=== PATIENT | female | born 1970 | race Caucasian/White ===

== ENCOUNTER 2023-04-24 13:02 | Emergency (ER) | payer OTHER, SELFPAY ==
[2023-04-24 13:04] VITALS: BP 138/84
[2023-04-24 13:28] LABS: % Basophils 1.5 % (0-2); % Eosinophils 1.6 % (0-6); % Immature Granulocytes 0.2 % (0-0.5); % Lymphocytes 44.7 % (20.5-51.1); % Monocytes 8.8 % (1.7-9.3); % Neutrophils 43.2 % (42.2-75.2); Absolute Basophils 0.1 10^3/uL (0-0.2); Absolute Eosinophils 0.1 10^3/uL (0-0.7); Absolute Lymphocytes 2.5 10^3/uL (1.2-3.4); Absolute Monocytes 0.5 10^3/uL (0.1-0.6); Absolute Neutrophils 2.4 10^3/uL (1.4-6.5); Hematocrit 38.3 % (37.0-47.0); Hemoglobin 13.3 g/dL (12.0-16.0); Mean Corp Hgb Conc. 34.7 g/dL (33.0-37.0); Mean Corpuscular Hgb 32.8 pg (27.0-31.0); Mean Corpuscular Volume 94.3 fL (81.0-99.0); Mean Platelet Volume 9.5 fL (7.4-10.4); Nucleated Red Blood Cells % 0 %; Platelet Count 305 10^3/uL (130-400); Red Blood Cell Count 4.06 10^6/uL (4.20-5.40); White Blood Cell Count 5.5 10^3/uL (4.8-10.8)
[2023-04-24 13:40] LABS: ALT (SGPT) 21 U/L (0-35); AST (SGOT) 32 U/L (14-36); Albumin 4.5 g/dl (3.5-5.0); Alkaline Phosphatase 50 U/L (38-126); Blood Urea Nitrogen 11 mg/dl (7-17); Calcium 9.3 mg/dl (8.4-10.2); Carbon Dioxide 31 mmol/L (22-30); Chloride 104 mmol/L (98-107); Glucose 88 mg/dl (70-99); Potassium 4.5 mmol/L (3.5-5.1); Sodium 137 mmol/L (135-145); Total Bilirubin 0.6 mg/dl (0.2-1.3); Total Protein 7.1 g/dl (6.3-8.2); eGFR > 60.00
[2023-04-24 13:49] LABS: Troponin I 0.024 ng/ml
[2023-04-24 14:05] VITALS: BP 131/80
[2023-04-24 14:52] VITALS: BP 139/87
[2023-04-24 15:00] VITALS: BP 121/65
--- NOTE | 2023-04-24 15:04 | ED.GENMED ---
History of Present Illness
General
Chief Complaint: Chest Pain
Source: patient
Exam Limitations: none
Time Seen by Provider: 04/24/23 14:12
Nursing documentation reviewed up to this point in time: agreed with
Travel History
Have you had any contact with someone who has COVID-19?: No
Do you have any symptoms of coronavirus? Fever > 100 degrees, chills, cough, shortness of breath, sore throat, loss of taste or smell, muscle aches, or headache?: No
History of Present Illness
History of Present Illness:
52-year-old female with past medical history of asthma GERD hypertension anxiety presenting to the emergency department today with concerns of chest pressure intermittently over the past 2 days with associated sweatiness when this occurs. Last
event was just prior to arrival to the emergency department. Currently now pain-free. Denies any exertional component denies any associated vomiting or nausea. Denies any recent trauma surgery immobilization history of blood clots estrogen
product usage.
Past History
Past History
ED Past Medical History: Asthma, Psychiatric (Chronic alcoholic) and Other (fibromyalgia)
ED Past Surgical History:
Patient has exhibited threatening behavior?: No
PSI?: No
Social History
Tobacco: Non-smoker
Alcohol: Chronic alcoholic
Drug: None
Personal:
Living: with family
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
Family History
Family History: Other (mother- afib); Negative Early CAD or CAD
Review of Systems
Review of Systems
Allergies reviewed?: Yes
All Other Systems: ROS reviewed and negative except as documented in HPI and ROS
Phy Exam
Physical Exam
Physical Exam:
GENERAL: Alert , in no apparent distress
EYE: pupils equal and reactive
NECK: Supple, no significant adenopathy.
ENT: o/p clr, mmm.
CARDIAC: Regular rate and rhythm .
LUNGS: Clear breath sounds bilaterally, no acute respiratory distress, no wheezes/rales/rhonchi
ABDOMEN: Soft, without focal tenderness, no r/g, no cvat
NEUROLOGICAL: Alert and oriented, no focal neuro deficits
SKIN: Warm and dry, skin intact.
MUSCULOSKELETAL: No edema, well perfused.
PSYCH: Normal and appropriate interaction.
Scores
Heart Score for Chest Pain Patients
STEMI patient?: No
History: Slightly or Non-Suspicious
ECG: Normal
Age: >45 - <65 years
Risk Factors: 1 or 2 Risk Factors
Troponin: </= Normal Limit
Heart Score for Chest Pain Patients: 2
Heart Score Risk: 2.5% MACE over next 6 weeks
Course
Orders/Labs/Results
Orders:
Orders
04/24/23 13:10
Complete Blood Count/With Diff Urgent
Comprehensive Metabolic Panel Urgent
Troponin I Urgent
04/24/23 13:11
Electrocardiogram (*1) Urgent
Reason for Study: Chest Pain
EKG- Treatment ONCE
04/24/23 14:12
Chest [CR Chest - 2 Views ] Urgent
Comment:
Reason For Exam: cp
04/24/23 15:33
EKG [Electrocardiogram (*1)] Urgent
Reason for Study: Chest Pain
04/24/23 15:34
EKG- Treatment ONCE
04/24/23 15:57
Troponin I Urgent
Abnormal Lab Results
04/24/23
13:10
RBC 4.06 L 10^6/uL
(4.20-5.40)
MCH 32.8 H pg
(27.0-31.0)
Carbon Dioxide 31 H mmol/L
(22-30)
04/24/23 13:10
04/24/23 13:10
Vital Signs
Initial and Last Documented VS:
Initial Vital Signs
Temp Pulse Resp BP Pulse Ox
97.8 F 71 16 138/84 98
04/24/23 13:04 04/24/23 13:04 04/24/23 13:04 04/24/23 13:04 04/24/23 13:04
Last Documented Vital Signs
Temp Pulse Resp BP Pulse Ox
97.8 F 54 11 121/65 100
04/24/23 13:04 04/24/23 16:30 04/24/23 16:30 04/24/23 15:00 04/24/23 13:56
MDM/Problems Addressed
MDM/Problems Addressed:
52-year-old female presenting to the emergency department today with concerns of chest pain described as a tightness rating to the left shoulder intermittently over the past 2 days last episode prior to arrival. Had some sweatiness during the
episode denies vomiting or shortness of breath no exertional component. No history of heart disease specifically. Does have high blood pressure baseline. On arrival vital signs are normal patient well-appearing no acute distress not tachycardic
normal pulse ox no risk factors for PE. Labs here are unremarkable initial troponin negative EKG nonischemic no signs of arrhythmia. Normal heart and lung examination.
Patient appears to be low risk for ACS, PE or life-threatening etiology at this time. Second troponin ordered to fully rule out ACS at this time.
Second troponin negative patient well-appearing throughout ER stay stable for outpatient management follow-up closely with cardiology. Return precautions given.
*Critical Care Note
Total Time (30-74mins, 75-104mins- exclusive of procedures): Not Applicable
ED Attending Note
-
Portions of this chart may have been created with voice recognition software.� Occasional wrong word or��sound alike� substitutions may have occurred due to the inherent limitations of voice recognition software.
Discharge Plan
Departure
Patient Disposition: Home (Routine Discharge)
Date of Disposition: 04/24/23
Time of Disposition: 17:04
Patient with high blood pressure during this ER visit?: No
Condition: Good
Covid-19: Not Applicable
Discharge Problem:
Chest pain
Instructions: Chest Pain DCA Follow Up
Prescriptions:
No Action
albuterol sulfate 2.5 MG/3 ML solution for nebulization
2.5 mg inhalation R TIDPRN PRN (Reason: sob)
metoprolol succinate 50 MG tablet extended release 24 hr
50 mg PO DAILY
albuterol sulfate 108 HFA aerosol inhaler
2 puff inhalation R Q4HPRN PRN (Reason: sob)
ondansetron 4 MG tablet,disintegrating
4 mg PO TIDPRN PRN (Reason: nausea ) Qty: 12 0RF
lorazepam 1 MG tablet
1 mg PO TIDPRN PRN (Reason: withdrawal sxs)
Patient Comments:
[facility] correctional supply supervisor on 03/01/2020 #15 , patient took half a tablet at 0330 and 0600 this morning 10/02/20
thiamine HCl (vitamin B1) 100 MG tablet
100 mg PO DAILY
Patient Comments:
today 10/02/20 id patient first day back on b1
ibuprofen 200 MG tablet
200 mg PO Q4HPRN PRN (Reason: mild pain)
clindamycin HCl 150 MG capsule
150 mg PO Q6 4 Days Qty: 16 0RF
fluconazole [Diflucan] 150 mg tablet
150 mg PO ONCE Qty: 1 0RF
Referrals:
Aaliyah Metcalf NP [Family Provider] -
Activity Restrictions/Additional Instructions:
You came to the emergency department today with concerns of chest discomfort. Here you had a reassuring evaluation with 2 negative troponin levels normal chest x-ray normal EKG and normal labs. Please follow closely with cardiology. Return to the
emergency department for any worsening, new or concerning symptoms.
Interventions
Interventions:
*Risk Screen - Suicide Last Done: 04/24/23 17:14
*General Assessment Last Done: 04/24/23 17:14
*Neglect/Abuse Screening Last Done: 04/24/23 17:14
ED- Fall Risk Assessment Last Done: 04/24/23 13:56
*ED COVID-19 Vaccine History Last Done: 04/24/23 13:04
*Nursing Disposition Last Done: 04/24/23 17:14
ED- Cardiac Assessment Last Done: 04/24/23 13:56
Discharge Date and Time
Discharge Date/Time: 04/24/23 17:17
[2023-04-24 16:35] LABS: Troponin I < 0.012 ng/ml
== END 2023-04-24 17:17 | disposition home or self-care (01) ==
LOC: EMR 13:02
PROVIDERS: Emergency Medicine; Physician Assistant; EMERGENCY PHYSICIAN Emergency Medicine; FAMILY PHYSICIAN Nurse Practitioner Family
DX: R07.89 Other chest pain (principal); J45.909 Unspecified asthma, uncomplicated; K21.9 Gastro-esophageal reflux disease without esophagitis; I10 Essential (primary) hypertension; F41.9 Anxiety disorder, unspecified; M79.7 Fibromyalgia; F10.20 Alcohol dependence, uncomplicated; Z88.0 Allergy status to penicillin; Z88.2 Allergy status to sulfonamides; Z88.8 Allergy status to other drugs, medicaments and biological substances; Z88.1 Allergy status to other antibiotic agents; Z88.3 Allergy status to other anti-infective agents; Z91.041 Radiographic dye allergy status; Z91.040 Latex allergy status
CPT/HCPCS: 99283; 71046; 80053; 84484; 85025; 93005

== ENCOUNTER 2023-08-16 13:41 | Emergency (ER) | payer OTHER, SELFPAY ==
[2023-08-16 13:49] VITALS: BP 150/97
--- NOTE | 2023-08-16 14:35 | ED.GENMED ---
History of Present Illness
General
Chief Complaint: Chest Pain
Source: patient
Exam Limitations: none
Time Seen by Provider: 08/16/23 14:10
Travel History
Have you had any contact with someone who has COVID-19?: No
Do you have any symptoms of coronavirus? Fever > 100 degrees, chills, cough, shortness of breath, sore throat, loss of taste or smell, muscle aches, or headache?: No
History of Present Illness
History of Present Illness:
53-year-old female presents complaining of multiple issues. Most prominent is left flank pain with associated nausea. Preceding this point pain she developed blurry vision and has been having sweats. She notes associated chest pain as well. She
states she is under significant amount of stress. She has a history of IBS-C. She follows with cardiology and GI. She notes that her urine was darker in color and foul in odor. She denies measurable fever. No other complaints at this time
Past History
Past History
ED Past Medical History: Asthma, Psychiatric (Chronic alcoholic) and Other (fibromyalgia)
ED Past Surgical History:
Patient has exhibited threatening behavior?: No
PSI?: No
Social History
Tobacco: Non-smoker
Alcohol: Chronic alcoholic
Drug: None
Personal:
Living: with family
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
Family History
Family History: Other (mother- afib); Negative Early CAD or CAD
Phy Exam
Physical Exam
Physical Exam:
General: Well-appearing female no acute respiratory distress
HEENT: Normocephalic atraumatic heart: Regular rate and rhythm no murmurs
Lungs: Clear no wheeze or rales
Abdomen soft tender to the left costovertebral angle and slightly to the left mid abdomen. No guarding rebound normal bowel sounds nondistended
Extremities: No cyanosis
Skin: Warm no rash
Scores
Heart Score for Chest Pain Patients
STEMI patient?: No
History: Slightly or Non-Suspicious
ECG: Normal
Age: >45 - <65 years
Risk Factors: No Risk Factors
Troponin: </= Normal Limit
Heart Score for Chest Pain Patients: 1
Heart Score Risk: 2.5% MACE over next 6 weeks
Course
Orders/Labs/Results
Orders:
Orders
08/16/23 13:42
ECG [Electrocardiogram (*1)] Urgent
Reason for Study: Chest Pain
EKG- Treatment ONCE
08/16/23 14:30
CT Abd/pel Without Iv Or Oral Urgent
Comment:
Reason For Exam: left flank pain
0.9% Sodium Chloride 1000 ml [Nss] 1,000 ml IV BOLUS
08/16/23 14:44
Basic Metabolic Panel Urgent
Lipase Urgent
Troponin I Urgent
08/16/23 14:45
Complete Blood Count/With Diff Urgent
08/16/23 16:16
Urinalysis Reflex To Culture Urgent
Date Specimen was Collected: 08/16/23
Time Specimen was Collected: 15:00
08/16/23 17:22
Troponin I Urgent
08/16/23 17:48
ECG [Electrocardiogram (*1)] Urgent
Reason for Study: Chest Pain
Other Reason for Exam: serial trop
EKG- Treatment ONCE
Abnormal Lab Results
08/16/23 08/16/23
14:44 14:45
MCH 32.2 H pg
(27.0-31.0)
Absolute Lymphs (auto) 1.1 L 10^3/uL
(1.2-3.4)
Lymphocytes % 19.8 L %
(20.5-51.1)
Sodium 132 L mmol/L
(135-145)
Chloride 97 L mmol/L
(98-107)
Creatinine 0.5 L mg/dL
(0.6-1.0)
08/16/23 14:45
08/16/23 14:44
Vital Signs
Initial and Last Documented VS:
Initial Vital Signs
Temp Pulse Resp BP Pulse Ox
98.9 F 63 18 150/97 100
08/16/23 13:49 08/16/23 13:49 08/16/23 13:49 08/16/23 13:49 08/16/23 13:49
Last Documented Vital Signs
Temp Pulse Resp BP Pulse Ox
98.9 F 56 16 140/86 100
08/16/23 13:49 08/16/23 16:15 08/16/23 16:15 08/16/23 16:15 08/16/23 16:15
MDM/Problems Addressed
Differential Diagnosis Includes:
Patient with multiple complaints. Left flank. Consider renal colic versus pyelonephritis. Chest pain consider ACS versus reflux. Pain is not pleuritic do not suspect PE. Urine pending labs pending CT pending EKG through triage shows sinus
rhythm.
*Critical Care Note
Total Time (30-74mins, 75-104mins- exclusive of procedures): Not Applicable
Update Note
Update Note:
Initial troponin 0.027 and repeat troponin undetectable. CT abdomen shows no acute finding. Urinalysis negative. Labs reviewed without significant finding otherwise. Patient resting comfortably upon reassessment vital signs remained stable. No
indication for admission to hospital but will follow-up with street and building decorator chest pain hotline.
ED Attending Note
-
Portions of this chart may have been created with voice recognition software.� Occasional wrong word or��sound alike� substitutions may have occurred due to the inherent limitations of voice recognition software.
Discharge Plan
Departure
Patient Disposition: Home (Routine Discharge)
Date of Disposition: 08/16/23
Time of Disposition: 18:48
Patient with high blood pressure during this ER visit?: No
Discharge Problem:
Chest pain
Instructions: Chest Pain DCA Follow Up
Prescriptions:
No Action
albuterol sulfate 2.5 MG/3 ML solution for nebulization
2.5 mg inhalation R TIDPRN PRN (Reason: sob)
metoprolol succinate 50 MG tablet extended release 24 hr
50 mg PO DAILY
albuterol sulfate 108 HFA aerosol inhaler
2 puff inhalation R Q4HPRN PRN (Reason: sob)
ondansetron 4 MG tablet,disintegrating
4 mg PO TIDPRN PRN (Reason: nausea ) Qty: 12 0RF
lorazepam 1 MG tablet
1 mg PO TIDPRN PRN (Reason: withdrawal sxs)
Patient Comments:
[facility] pick up worker on 03/01/2020 #15 , patient took half a tablet at 0330 and 0600 this morning 10/02/20
thiamine HCl (vitamin B1) 100 MG tablet
100 mg PO DAILY
Patient Comments:
today 10/02/20 id patient first day back on b1
ibuprofen 200 MG tablet
200 mg PO Q4HPRN PRN (Reason: mild pain)
clindamycin HCl 150 MG capsule
150 mg PO Q6 4 Days Qty: 16 0RF
fluconazole [Diflucan] 150 mg tablet
150 mg PO ONCE Qty: 1 0RF
Referrals:
Aaliyah Metcalf NP [Family Provider] -
Activity Restrictions/Additional Instructions:
Please continue current medication. Please follow-up with your street and building decorator. Return if needed otherwise
Interventions
Interventions:
*General Assessment Last Done: 08/16/23 13:50
*ED COVID-19 Vaccine History Last Done: 08/16/23 13:50
ED- Cardiac Assessment Last Done: 08/16/23 14:45
Discharge Date and Time
Print Language: IRISH
[2023-08-16 14:42] VITALS: BMI 22.7
[2023-08-16 14:59] LABS: % Basophils 0.9 % (0-2); % Eosinophils 0.4 % (0-6); % Immature Granulocytes 0.4 % (0-0.5); % Lymphocytes 19.8 % (20.5-51.1); % Monocytes 8.7 % (1.7-9.3); % Neutrophils 69.8 % (42.2-75.2); Absolute Basophils 0.1 10^3/uL (0-0.2); Absolute Lymphocytes 1.1 10^3/uL (1.2-3.4); Absolute Monocytes 0.5 10^3/uL (0.1-0.6); Absolute Neutrophils 3.7 10^3/uL (1.4-6.5); Hematocrit 38.8 % (37.0-47.0); Hemoglobin 13.6 g/dL (12.0-16.0); Mean Corp Hgb Conc. 35.1 g/dL (33.0-37.0); Mean Corpuscular Hgb 32.2 pg (27.0-31.0); Mean Corpuscular Volume 91.9 fL (81.0-99.0); Nucleated Red Blood Cells % 0 %; Red Blood Cell Count 4.22 10^6/uL (4.20-5.40); Red Cell Dist. Width 12.6 % (11.5-14.5); White Blood Cell Count 5.3 10^3/uL (4.8-10.8)
[2023-08-16 15:19] LABS: Troponin I 0.027 ng/ml
[2023-08-16 15:28] LABS: Blood Urea Nitrogen 9 mg/dl (7-17); Calcium 9.7 mg/dl (8.4-10.2); Carbon Dioxide 27 mmol/L (22-30); Chloride 97 mmol/L (98-107); Estimated Creatinine Clearance 89 ml/min; Glucose 95 mg/dl (70-99); Lipase 136 U/L (23-300); Sodium 132 mmol/L (135-145); eGFR > 60.00
[2023-08-16] MEDS: NSS 1000 IV (16:13)
[2023-08-16 16:15] VITALS: BP 140/86
[2023-08-16 16:30] LABS: Urine Albumin Negative (Neg - Trace); Urine Bilirubin Negative (Negative); Urine Character Clear (Clear); Urine Color Straw; Urine Glucose Negative (Negative); Urine Ketone Negative (Negative); Urine Leukocyte Negative (Negative); Urine Nitrite Negative (Negative); Urine Occult Blood Negative (Negative); Urine Specific Gravity 1.005 (<1.030); Urine Urobilinogen Negative (Neg - 1+)
[2023-08-16 18:10] LABS: Troponin I < 0.012 ng/ml
== END 2023-08-16 19:21 | disposition home or self-care (01) ==
LOC: EMR 13:41
PROVIDERS: Physician Assistant; EMERGENCY PHYSICIAN Emergency Medicine; FAMILY PHYSICIAN Nurse Practitioner Family
DX: K58.9 Irritable bowel syndrome, unspecified (principal); R07.9 Chest pain, unspecified; R10.9 Unspecified abdominal pain; R11.0 Nausea; H53.8 Other visual disturbances; R61 Generalized hyperhidrosis; Z73.3 Stress, not elsewhere classified; J45.909 Unspecified asthma, uncomplicated; M79.7 Fibromyalgia; F10.20 Alcohol dependence, uncomplicated; Z88.5 Allergy status to narcotic agent; Z88.0 Allergy status to penicillin; Z88.2 Allergy status to sulfonamides; Z88.8 Allergy status to other drugs, medicaments and biological substances; Z88.1 Allergy status to other antibiotic agents; Z88.3 Allergy status to other anti-infective agents; Z91.041 Radiographic dye allergy status; Z91.040 Latex allergy status
CPT/HCPCS: 99284; 96360; 74176; 80048; 81003; 83690; 84484; 85025; 93005

== ENCOUNTER 2023-11-11 16:08 | Inpatient (IN) | payer OTHER, SELFPAY ==
[2023-11-11] VITALS (7 sets, daily range): BP systolic 96–158; BP diastolic 74–101; BMI 21.3
[2023-11-11] MEDS: NSS 1000 IV ×2 (13:47→18:13)
[2023-11-11 13:54] LABS: % Basophils 0.3 % (0-2); % Eosinophils 0.2 % (0-6); % Immature Granulocytes 0.2 % (0-0.5); % Lymphocytes 18.8 % (20.5-51.1); % Monocytes 5.3 % (1.7-9.3); % Neutrophils 75.2 % (42.2-75.2); Absolute Lymphocytes 1.2 10^3/uL (1.2-3.4); Absolute Monocytes 0.4 10^3/uL (0.1-0.6); Hematocrit 38.6 % (37.0-47.0); Hemoglobin 14.4 g/dL (12.0-16.0); Mean Corp Hgb Conc. 37.3 g/dL (33.0-37.0); Mean Corpuscular Hgb 32.4 pg (27.0-31.0); Mean Corpuscular Volume 86.7 fL (81.0-99.0); Mean Platelet Volume 9.3 fL (7.4-10.4); Nucleated Red Blood Cells % 0 %; Platelet Count 147 10^3/uL (130-400); Red Blood Cell Count 4.45 10^6/uL (4.20-5.40); Red Cell Dist. Width 11.4 % (11.5-14.5); White Blood Cell Count 6.6 10^3/uL (4.8-10.8)
[2023-11-11] MEDS: ZOFRAN 4 MG IV (14:09)
--- NOTE | 2023-11-11 14:10 | ED.GENMED ---
History of Present Illness
General
Chief Complaint: Cold/Flu/URI Symptoms
Source: patient
Time Seen by Provider: 11/11/23 13:24
History of Present Illness
History of Present Illness:
53-year-old female presenting to the emergency department for 2 separate concerns. Patient states she started with cold and flulike symptoms about 11 days ago, 2 days ago tested positive for COVID. She notes that her daughter who is at home also
had similar symptoms but recovered after 2 days. Patient endorses that over the last 48 hours she has had versus nausea, vomiting and difficulty tolerating p.o. She contacted her primary care doctor who prescribed her some Zofran but with her
continued symptoms today her PCP recommended she come to the ER for further evaluation. Patient has secondary concern of binge drinking at least 8-9 beers daily over the last 14 days. She has noted history for alcohol abuse and has gone inpatient
before stating that the last time she did was when her left her and she knew she needed to get help. Patient continues to go to outpatient meetings and has many people she can now lean on but states the last 2 weeks have been difficult and
more stressful for her. She denies any SI/HI/hallucinations. Patient notes her only other physical symptoms is persistent headache. Last drink of alcohol was earlier this morning.
Past History
Past History
ED Past Medical History: Asthma, GERD, Psychiatric (Chronic alcoholic) and Other (fibromyalgia)
ED Past Surgical History:
Patient has exhibited threatening behavior?: No
PSI?: No
Social History
Tobacco: Non-smoker
Alcohol: Chronic alcoholic
Drug: None
Personal:
Living: with family
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
Family History
Family History: Other (mother- afib); Negative Early CAD or CAD
Review of Systems
Review of Systems
All Other Systems: ROS reviewed and negative except as documented in HPI and ROS
Phy Exam
Physical Exam
Physical Exam:
GENERAL: Alert , in no apparent distress, Anxious
EYE: Clear conjunctiva
NECK: Supple
ENT: o/p clr, mmm.
CARDIAC: Regular rate and rhythm, no murmur.
LUNGS: Clear breath sounds bilaterally, no acute respiratory distress, no wheezes/rales/rhonchi
ABDOMEN: Soft, without focal tenderness, no r/g, no cvat
NEUROLOGICAL: Alert and oriented
SKIN: Warm and dry, skin intact.
MUSCULOSKELETAL: well perfused.
PSYCH: Normal and appropriate interaction.
Scores
Heart Failure Risk
Heart Failure Risk Score: Not Applicable
Heart Score for Chest Pain Patients
STEMI patient?: Not applicable
Withdrawal Assessment of Alcohol
Withdrawal Assessment Completed?: Yes
Nausea and Vomiting: Intermittent nausea with dry heaves (I am giving the score but this could also be related to patient's COVID illness)
Tactile Disturbances: None
Tremor: No tremor
Auditory Disturbances: Not present
Paroxysmal Sweats: No sweat visible
Visual Disturbances: Not present
Anxiety: Mild anxiety
Headache, Fullness in Head: Mild
Agitation: Normal activity
Orientation and clouding of sensorium: Oriented and can do serial additions
Total CIWA Score: 7
Alcohol Withdrawal Medication Recommendation: Equal to MSAS Score 0-4. Monitor & re-assess q2hrs, NO MEDICATION NEEDED
Course
Orders/Labs/Results
Orders:
Orders
11/11/23 13:25
0.9% Sodium Chloride 1000 ml [Nss] 1,000 ml IV BOLUS
11/11/23 13:40
Alcohol Urgent
Complete Blood Count/With Diff Urgent
Comprehensive Metabolic Panel Urgent
Magnesium Urgent
11/11/23 14:06
Ketorolac [Toradol] 30 mg IV NOW STA
Ondansetron Injectable [Zofran] 4 mg .ROUTE .[facility]
Ondansetron Injectable [Zofran] 4 mg IV NOW STA
11/11/23 14:07
Ketorolac [Toradol] 30 mg .ROUTE .[facility]
11/11/23 14:18
CR Chest - 2 Views Urgent
Comment:
Reason For Exam: covid, cough
11/11/23 14:58
Lorazepam [Ativan] 1 mg IV NOW STA
11/11/23 15:29
COVID-19 Antigen Urgent
Source: Nasal Swab
Serum Osmolality Urgent
11/11/23 15:37
Osmolality, Random Urine Urgent
Date Specimen was Collected: 11/11/23
Time Specimen was Collected: 15:36
11/11/23 15:49
Admit/Transfer Patient As Directed
Co-Sign Provider:
Level of Care: Inpatient admission
Assign to:: Telemetry
Physician / Group: Hospitalist
Diagnosis: Alcohol WD, covid pos.
Reason for Telemetry: Other
Other Reason for Telemetry: risk of seizures
Date to Stop Telemetry: 11/13/23
Time to Stop Telemetry: 11:00
Reason for Hospitalization: alcohol wd, covid pos, hyponatremia
Expected length of stay greater than two midnights?: Yes
ELOS- Estimated Length of Stay in days: 5
I certify the patient meets the requirements for IP care: Yes
11/11/23 15:52
Code Status As Directed
Resuscitation Status: Full Code
11/13/23 11:00
DC Protocol for Telemetry ONCE
Abnormal Lab Results
11/11/23 11/11/23 11/11/23
13:40 15:29 15:37
MCH 32.4 H pg
(27.0-31.0)
MCHC 37.3 H g/dL
(33.0-37.0)
RDW 11.4 L %
(11.5-14.5)
Lymphocytes % 18.8 L %
(20.5-51.1)
Sodium 122 L mmol/L
(135-145)
Chloride 90 L mmol/L
(98-107)
BUN 4 L mg/dl
(7-17)
Creatinine 0.5 L mg/dL
(0.6-1.0)
Serum Osmolality 267 L mOsm/kg
(275-300)
AST 65 H U/L
(14-36)
ALT 51 H U/L
(0-35)
Urine Osmolality 82 L mOsm/kg
(300-900)
11/11/23 13:40
11/11/23 13:40
Vital Signs
Initial and Last Documented VS:
Initial Vital Signs
Temp Pulse Resp BP Pulse Ox
98.3 F 81 16 96/74 98
11/11/23 12:58 11/11/23 12:58 11/11/23 12:58 11/11/23 12:58 11/11/23 12:58
Last Documented Vital Signs
Temp Pulse Resp BP Pulse Ox
98.3 F 81 16 96/74 98
11/11/23 12:58 11/11/23 12:58 11/11/23 12:58 11/11/23 12:58 11/11/23 12:58
MDM/Problems Addressed
Differential Diagnosis Includes:
Viral syndrome/COVID, dehydration, electrolyte disturbance, less concern for acute alcohol withdrawal given patient's last drink was less than 4 hours ago
MDM/Problems Addressed:
53-year-old female presenting to the emergency department to be evaluated at request of primary care provider for further evaluation of persistent COVID symptoms as well as alcohol use. Patient's main concern is difficulty tolerating p.o.
Certainly possible her nausea and vomiting is related to alcohol withdrawal however given that she has been drinking still during this time I favor this to be less likely. Will check labs, chest x-ray and treat with normal saline, Toradol and
Zofran. Reassessment following.
*Radiology
Radiology exam reviewed: preliminary read by ED provider (normal CXR)
*Pulse Oximetry
Patient hypoxic: no
*Critical Care Note
Total Time (30-74mins, 75-104mins- exclusive of procedures): Not Applicable
Patient Management
Discussion with other providers: Hospitalist
Escalation/DeEscalation of care consider admission/obs:
Patient's sodium 122. I suspect this is from volume depletion due to her nausea vomiting and lack of p.o. intake. She was treated with normal saline. Given multitude of concerns and presentation in the ED will admit for continued evaluation and
monitoring. Hospitalist team is aware and accepts.
ED Attending Note
-
Portions of this chart may have been created with voice recognition software.� Occasional wrong word or��sound alike� substitutions may have occurred due to the inherent limitations of voice recognition software.
Discharge Plan
Departure
Patient Disposition: Admit
Date of Disposition: 11/11/23
Time of Disposition: 14:49
Presentation/result/management discussed w/ accepting MD/DO: Hospitalist
Discharge Problem:
Acute hyponatremia, COVID, Alcohol abuse
Prescriptions:
No Action
albuterol sulfate 2.5 MG/3 ML solution for nebulization
2.5 mg inhalation R TIDPRN PRN (Reason: sob)
metoprolol succinate 50 MG tablet extended release 24 hr
50 mg PO DAILY
albuterol sulfate 108 HFA aerosol inhaler
2 puff inhalation R Q4HPRN PRN (Reason: sob)
ondansetron 4 MG tablet,disintegrating
4 mg PO TIDPRN PRN (Reason: nausea ) Qty: 12 0RF
lorazepam 1 MG tablet
1 mg PO TIDPRN PRN (Reason: withdrawal sxs)
Patient Comments:
[facility] package pick up on 03/01/2020 #15 , patient took half a tablet at 0330 and 0600 this morning 10/02/20
thiamine HCl (vitamin B1) 100 MG tablet
100 mg PO DAILY
Patient Comments:
today 10/02/20 id patient first day back on b1
ibuprofen 200 MG tablet
200 mg PO Q4HPRN PRN (Reason: mild pain)
clindamycin HCl 150 MG capsule
150 mg PO Q6 4 Days Qty: 16 0RF
fluconazole [Diflucan] 150 mg tablet
150 mg PO ONCE Qty: 1 0RF
Referrals:
Aaliyah Metcalf NP [Family Provider] -
Interventions
Interventions:
*Risk Screen - Suicide Last Done: 11/11/23 12:58
*General Assessment Last Done: 11/11/23 12:58
*Neglect/Abuse Screening Last Done: 11/11/23 12:58
Discharge Date and Time
Print Language: TELUGU
[2023-11-11] MEDS: TORADOL 30 MG IV (14:11)
[2023-11-11 14:33] LABS: ALT (SGPT) 51 U/L (0-35); AST (SGOT) 65 U/L (14-36); Albumin 4.9 g/dl (3.5-5.0); Alcohol 30 mg/dl; Alkaline Phosphatase 80 U/L (38-126); Blood Urea Nitrogen 4 mg/dl (7-17); Calcium 9.2 mg/dl (8.4-10.2); Carbon Dioxide 24 mmol/L (22-30); Chloride 90 mmol/L (98-107); Glucose 90 mg/dl (70-99); Magnesium 1.8 mg/dl (1.6-2.3); Potassium 4.8 mmol/L (3.5-5.1); Sodium 122 mmol/L (135-145); Total Protein 7.4 g/dl (6.3-8.2); eGFR > 60.00
--- NOTE | 2023-11-11 15:22 | HPS.HSE ---
Family Physician
-
Family Physician: Aaliyah Metcalf NP
Chief Complaint
-
nausea, anxiety.
History of Present Illness
53-year-old woman with the following concerns:
cold and flulike symptoms for about 11 days ago, and 2 days ago tested positive for COVID.
over the last 48 hours she has had nausea, vomiting and difficulty tolerating p.o.
binge drinking at least 8-9 beers daily over the last 14 days.
She has a history of alcohol abuse and has had inpatient admits before. She continues to go to outpatient meetings. She denies any SI/HI/hallucinations. Patient states that her only other physical symptoms is persistent headache. Last drink of
alcohol was earlier this morning. At the time of my admit she was very anxious. She was able to answer questions appropriately. In ED, her Na was 122.
Medical History
Past Medical History
Past Medical History: Reports Other
Additional Past Medical History:
Asthma
GERD
Chronic alcoholism
fibromyalgia
Renal mass
Past Surgical History: Reports Other
Additional Past Surgical History:
See above
Social History
Tobacco: Non-smoker
Alcohol: Chronic Alcoholic
Drug: None
Personal:
Living: With Family
Employment: Not Employed
Family History
Family History: Not pertinent
Allergies / Home Medications
Allergies reflects when Allergies were last updated in [employer].
Home Medications with original date entered in [employer]
Allergy/Medication List:
Allergies
Allergy/AdvReac Type Severity Reaction Status Date / Time
Androgenic Anabolic Steroid Allergy Intermediate Rash Verified 11/11/23 12:56
azithromycin Allergy Hives Verified 11/11/23 12:56
cephalexin Allergy Unknown Verified 11/11/23 12:56
Cephalosporins Allergy Unknown Verified 11/11/23 12:56
ciprofloxacin Allergy hives & sob Verified 11/11/23 12:56
doxycycline Allergy Throat Verified 11/11/23 12:56
closing
erythromycin base Allergy Pt Verified 11/11/23 12:56
tolerated
erythromycin.
Gadolinium-Containing Allergy Unknown Verified 11/11/23 12:56
Contrast Medi
[Gadolinium-Containing
Agents]
morphine [Morphine] Allergy Hives Verified 11/11/23 12:56
penicillin G Allergy Hives Verified 11/11/23 12:56
Penicillins Allergy Hives Verified 11/11/23 12:56
prednisone [Prednisone] Allergy Hives/itchi Verified 11/11/23 12:56
ng
Quinolones Allergy Unknown Verified 11/11/23 12:56
Sulfa (Sulfonamide Allergy Unknown Verified 11/11/23 12:56
Antibiotics)
sulfisoxazole Allergy Unknown Verified 11/11/23 12:56
latex [Latex] AdvReac Rash Verified 11/11/23 12:56
Home Medications
albuterol sulfate 2.5 mg/3 mL (0.083 %) solution for nebulization 2.5 mg inhalation R TIDPRN PRN sob 09/05/19
albuterol sulfate 90 mcg/actuation aerosol inhaler 2 puff inhalation R Q4HPRN PRN sob 09/05/19
metoprolol succinate 50 mg tablet,extended release 24 hr 50 mg PO DAILY Heart disease 09/05/19
ondansetron 4 mg disintegrating tablet 4 mg PO TIDPRN PRN nausea #12 tabs 01/15/20
ibuprofen 200 mg tablet 200 mg PO Q4HPRN PRN mild pain 10/02/20
lorazepam 1 mg tablet 1 mg PO TIDPRN PRN withdrawal sxs 10/02/20
thiamine HCl (vitamin B1) 100 mg tablet 100 mg PO DAILY Supplement 10/02/20
clindamycin HCl 150 mg capsule 150 mg PO Q6 4 days #16 caps 10/04/20
fluconazole 150 mg tablet (Diflucan) 150 mg PO ONCE #1 tab 07/17/22
Review of Systems
-
History Source: Patient
A 12 point ROS was completed and negative except as noted: Yes
Physical Exam
Vital Signs
Vital Signs
Temp Pulse Resp BP Pulse Ox
98.3 F 81 16 96/74 98
11/11/23 12:58 11/11/23 12:58 11/11/23 12:58 11/11/23 12:58 11/11/23 12:58
Physical Exam
General: Well Developed, Well Nourished and Appears in Distress
HEENT: No Ptosis, Nose Appears Normal and Ears Appear Normal
Respiratory: Clear
Cardiac: S1/S2 and Regular Rhythm
GI: Soft, Non Tender and Non Distended
Musculoskeletal: No Clubbing, No Cyanosis and No Edema
Skin: Warm and Dry; No Rash or Jaundice
Neuro: Awake, Alert and Oriented
Psych: Anxious
Laboratory Results
-
11/11/23 13:40
11/11/23 13:40
Laboratory Results
Total Bilirubin 1.0 mg/dl (0.2-1.3) 11/11/23 13:40
AST 65 U/L (14-36) H 11/11/23 13:40
ALT 51 U/L (0-35) H 11/11/23 13:40
Alkaline Phosphatase 80 U/L (38-126) 11/11/23 13:40
Data Reviewed
-
Lab Data: Labs Reviewed by me
Impression/Plan
-
IMPRESSION:
53 woman with probable alcohol wd and is covid positive (11 days of symptoms). Significant findings:
BP of 96/74
Na 122
BUN/Creat 4.0/0.5
AST/ALT 65/51
Covid (+) with 11 days of symptoms
PLAN:
1. Probable Etoh w/d, with nausea and poor po intake, and significant anxiety
CIWA protocol
IV saline
Zofran
2. Likely hypovolemic hyponatremia, given history of poor po intake and vomiting
IV saline
Recheck tonight and tomorrow AM
3. Low BP - likely from hypovolemia
IV saline
Consider midrodine if saline does not fix issue
4. AST/ALT elevated - chronic issue, likely from alcohol
Recheck in am
Check INR
5. H/o recent covid infection - CXR not yet reported, but no clinical signs of PNA
No antibiotics at this time
Outside of time window for covid specific meds
Follow daily
6. Anxiety - takes lorazepam as outpatient, but much worse now
Continue daily lorazepam
Take standing dose for the next 24 hours, then taper to PRN.
Full code
VCD for DVTp
[2023-11-11] MEDS: ATIVAN 1 MG IV (15:27)
[2023-11-11 15:48] LABS: Osmolality Serum 267 mOsm/kg (275-300)
[2023-11-11 15:50] LABS: Osmolality Urine 82 mOsm/kg (300-900)
[2023-11-11 16:08] LABS: COVID-19 Antigen Negative (Negative)
[2023-11-11] MEDS: FLUSH (NSS) 1 FLUSH IV (18:14)
[2023-11-11] MEDS: TORADOL 15 MG IV (21:28)
[2023-11-11] MEDS: XANAX 0.5 MG PO (22:19)
[2023-11-12 00:02] LABS: Blood Urea Nitrogen 10 mg/dl (7-17); Calcium 8.6 mg/dl (8.4-10.2); Carbon Dioxide 24 mmol/L (22-30); Chloride 99 mmol/L (98-107); Estimated Creatinine Clearance 89 ml/min; Glucose 137 mg/dl (70-99); Potassium 4.9 mmol/L (3.5-5.1); Sodium 128 mmol/L (135-145); eGFR > 60.00
[2023-11-12] MEDS: NSS 1000 IV (01:20)
[2023-11-12 03:31] VITALS: BP 128/79
[2023-11-12 06:35] LABS: Hematocrit 36.5 % (37.0-47.0); Hemoglobin 13.4 g/dL (12.0-16.0); Mean Corp Hgb Conc. 36.7 g/dL (33.0-37.0); Mean Corpuscular Hgb 32.2 pg (27.0-31.0); Mean Corpuscular Volume 87.7 fL (81.0-99.0); Mean Platelet Volume 9.7 fL (7.4-10.4); Platelet Count 145 10^3/uL (130-400); Red Blood Cell Count 4.16 10^6/uL (4.20-5.40); Red Cell Dist. Width 11.8 % (11.5-14.5); White Blood Cell Count 4.4 10^3/uL (4.8-10.8)
[2023-11-12] MEDS: TYLENOL 650 MG PO (06:41)
[2023-11-12] MEDS: ZOFRAN 4 MG IV (06:43)
[2023-11-12 06:57] LABS: ALT (SGPT) 45 U/L (0-35); AST (SGOT) 62 U/L (14-36); Albumin 3.8 g/dl (3.5-5.0); Alkaline Phosphatase 63 U/L (38-126); Blood Urea Nitrogen 8 mg/dl (7-17); Calcium 8.5 mg/dl (8.4-10.2); Carbon Dioxide 25 mmol/L (22-30); Chloride 104 mmol/L (98-107); Estimated Creatinine Clearance 89 ml/min; Glucose 91 mg/dl (70-99); Magnesium 2.1 mg/dl (1.6-2.3); Potassium 4.1 mmol/L (3.5-5.1); Sodium 132 mmol/L (135-145); Total Protein 6.2 g/dl (6.3-8.2); eGFR > 60.00
[2023-11-12 07:23] VITALS: BP 145/89
[2023-11-12] MEDS: FOLVITE 1 MG PO (08:46)
[2023-11-12] MEDS: TOPROL XL 50 MG PO (08:48)
[2023-11-12] MEDS: PROTONIX 40 MG PO (08:49)
[2023-11-12] MEDS: ZADITOR 2 DROP BOTH EYES ×2 (08:49→19:40)
[2023-11-12] MEDS: LINZESS PO (08:53)
[2023-11-12] MEDS: NSS IV (08:56)
[2023-11-12] MEDS: VENTOLIN NEBULES 2.5 MG INH ×2 (11:03→20:57)
[2023-11-12 11:08] VITALS: BP 116/74
[2023-11-12] MEDS: IMITREX 50 MG PO (12:46)
--- NOTE | 2023-11-12 13:17 | W.PN.HOSP.TC ---
Today's Communication/Plan
-
Continue supportive care
Imitrex for headache
CT head without contrast
Diet as tolerated
Assessment / Plan
Assessment / Plan
1. COVID-19 viral infection
-12 days from symptom initiation.
-All symptoms mainly upper respiratory tract in nature
-Chest x-ray clear
-Discussed possible Paxlovid therapy with variety of symptoms although patient wants to consider. have taken paxlovid in the past without any issues
2. Hypovolemic hyponatremia
-from poor oral intake
-admission Na of 122 ,improved to 132 post NS infusion
3. Headache
-Complaining of diffuse headache not subsiding with Tylenol/Toradol
-Patient had recent fall and although no head injury concerned about bleed, CT head w/o contrast ordered
-Imitrex ordered for patien to try
4. Nausea/vomiting
-Not completely resolved, Zofran does not help completely
-Will try different medication if continues to have problem
-Current able to tolerate diet
5. Alcohol use disorder
Generalized anxiety disorder
-Concerned about going through withdrawal although MSAS score 0-1
-PRN xanax ordered to use at night time
6. Essential HTN
-continue on toprol xl with holding parameter
7. LFT elevation
-COVID related, avoid hepatotoxic meds
-f/u LFT ordered
-Persistent nausea/vomiting will require upper quad ultrasound
DVT PPX -scd
Full code
Anticipated Discharge: Within 24 hours
Subjective/Interval History
-
Date of Service: November 12, 2023
have some headache/neck stiffness
no dyspnea/hypoxia
remains nauseous/poor apatite
Objective Data
-
Labs:
Laboratory Results
11/12/23
06:04
WBC 4.4 L
Hgb 13.4
Hct 36.5 L
Plt Count 145
Sodium 132 L
Potassium 4.1
Chloride 104
Carbon Dioxide 25
BUN 8
Creatinine 0.6
Glucose 91
Calcium 8.5
Total Bilirubin 1.0
AST 62 H
ALT 45 H
Alkaline Phosphatase 63
Vital Signs:
Vital Signs
Temp Pulse Resp BP Pulse Ox
97.8 F 70 16 116/74 100
11/12/23 11:08 11/12/23 11:08 11/12/23 11:08 11/12/23 11:08 11/12/23 11:08
I&O
11/11/23 11/12/23 11/13/23
06:59 06:59 06:59
Intake Total 480 / 480
Balance 480 / 480
Review of Systems
-
EENT: Reports Sore Throat and Runny Nose
Respiratory: Reports No Symptoms
Cardiac: Reports No Symptoms
Abdomen/GI: Reports Abdominal Pain and Nausea; Denies Vomiting
Neuro: Reports Headache and Weakness
Physical Exam
-
General: Negative Respiratory Distress or Appears in Distress
HEENT: Negative Oxygen
GI: Soft, Nontender and Nondistended
Musculoskeletal: No Edema
Neuro: Awake, Alert, Oriented and No Motor Deficits
[2023-11-12] MEDS: COMPAZINE 10 MG IV (13:51)
[2023-11-12] MEDS: FLUSH (NSS) 2 FLUSH IV (13:56)
--- NOTE | 2023-11-12 14:16 | PTCARENOTE ---
Pt states she did not like the way she feels on Imitrex. Shes states that her body feels heavy and her back and neck became stiff and tight after getting Imitrex. She has not gotten any pain relief from it as of yet. Pt given compazine 10mg Iv
for c/o a 'constant nauseous feeling that won't go away.' Will cont to monitor.
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
[2023-11-12 15:39] VITALS: BP 137/75
[2023-11-12 19:26] VITALS: BP 138/75
[2023-11-12] MEDS: PEPCID 20 MG PO (21:03)
[2023-11-12] MEDS: XANAX 0.5 MG PO (21:03)
[2023-11-12 23:21] VITALS: BP 106/76
[2023-11-13] MEDS: XANAX 0.5 MG PO ×2 (03:05→09:08)
[2023-11-13 03:41] VITALS: BP 135/75
[2023-11-13] MEDS: TYLENOL 650 MG PO (05:32)
[2023-11-13 06:35] LABS: Hematocrit 37.1 % (37.0-47.0); Hemoglobin 13.5 g/dL (12.0-16.0); Mean Corp Hgb Conc. 36.4 g/dL (33.0-37.0); Mean Corpuscular Volume 87.9 fL (81.0-99.0); Platelet Count 141 10^3/uL (130-400); Red Blood Cell Count 4.22 10^6/uL (4.20-5.40); Red Cell Dist. Width 11.9 % (11.5-14.5); White Blood Cell Count 4.6 10^3/uL (4.8-10.8)
[2023-11-13 07:08] LABS: ALT (SGPT) 53 U/L (0-35); AST (SGOT) 63 U/L (14-36); Albumin 4.6 g/dl (3.5-5.0); Alkaline Phosphatase 54 U/L (38-126); Blood Urea Nitrogen 5 mg/dl (7-17); Calcium 9.5 mg/dl (8.4-10.2); Carbon Dioxide 24 mmol/L (22-30); Chloride 104 mmol/L (98-107); Direct Bilirubin 0.3 mg/dl (0.0-0.4); Estimated Creatinine Clearance 89 ml/min; Glucose 89 mg/dl (70-99); Potassium 4.1 mmol/L (3.5-5.1); Sodium 136 mmol/L (135-145); Total Protein 7.3 g/dl (6.3-8.2); eGFR > 60.00
--- NOTE | 2023-11-13 07:33 | W.PN.HOSP.TC ---
Today's Communication/Plan
-
.
Assessment / Plan
Assessment / Plan
Patient is a 53-year-old female with past medical history of alcohol use disorder and 2 weeks of URI symptoms, now COVID-positive.
COVID-19
� 13 days from symptom initiation
� Chest x-ray clear
� Patient declined Paxlovid
Hypovolemic hyponatremia
� Secondary to poor oral intake
� NA today at 136, resolved
Headache
� Poorly managed with Tylenol/Toradol
� CT head showed no acute intracranial abnormalities
� 1 dose of Imitrex given on 11/11. Patient stated she had full body aches for a short period which resolved. Helped with headache
� Mild headache present today 11/12
� Recommended [id number] Fioricet
� Follow-up outpatient with migraines clinic
Nausea/vomiting
� Currently resolved
� Patient able to tolerate p.o. diet
Alcohol use disorder/generalized anxiety disorder
� MCI score 0�1
� As needed Xanax ordered.
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
� Patient recommended to continue thiamine and folate supplementation at home for alcohol use disorder
Essential HTN
-continue on Toprol xl with holding parameter
LFT elevation
-COVID related, avoid hepatotoxic meds
-f/u LFT ordered
-Persistent nausea/vomiting will require upper quad ultrasound
DVT PPX -scd
Full code
Anticipated Discharge: Today
Subjective/Interval History
-
Date of Service: November 13, 2023
Patient had no acute overnight events. She reports no chest pain, shortness of breath, abdominal pain, nausea, vomiting or constipation. She states she has an ongoing headache and had 3 episodes of loose bowels yesterday.
Objective Data
-
Labs:
Laboratory Results
11/13/23
05:29
WBC 4.6 L
Hgb 13.5
Hct 37.1
Plt Count 141
Sodium 136
Potassium 4.1
Chloride 104
Carbon Dioxide 24
BUN 5 L
Creatinine 0.5 L
Glucose 89
Calcium 9.5
Total Bilirubin 1.0
AST 63 H
ALT 53 H
Alkaline Phosphatase 54
Vital Signs:
Vital Signs
Temp Pulse Resp BP Pulse Ox
97.8 F 64 19 135/75 99
11/13/23 03:41 11/13/23 03:41 11/13/23 03:41 11/13/23 03:41 11/13/23 03:41
I&O
11/12/23 11/13/23 11/14/23
06:59 06:59 06:59
Intake Total 480 / 480 2580 / 2580
Balance 480 / 480 2580 / 2580
Review of Systems
-
History Source: Patient
Constitutional: Reports No Symptoms
EENT: Reports No Symptoms Reported
Respiratory: Reports No Symptoms
Cardiac: Reports No Symptoms
Abdomen/GI: Reports No Symptoms and Diarrhea
Musculoskeletal: Reports No Symptoms
Skin: Reports No Symptoms
Neuro: Reports Headache
Physical Exam
-
General: Well Developed, Well Nourished and Comfortable
HEENT: Normocephalic and Atraumatic
Respiratory: Clear to Auscultation
Cardiac: Regular Rhythm and S1/S2
GI: Soft, Nontender, Nondistended and Normal Bowel Sounds
Musculoskeletal: No Clubbing, No Cyanosis and No Edema
Skin: Warm and Dry
Neuro: AO x 3 and No Motor Deficits
Psych: Anxious
Data Reviewed
-
Total Time Spent with Patient (in minutes): 45
CT Scan: Report Reviewed by me and Discussed with Physician
Labs: Labs Reviewed by me and Discussed with Physician
Old Records: Reviewed
[2023-11-13 07:35] VITALS: BP 144/87
[2023-11-13] MEDS: TOPROL XL 50 MG PO (08:48)
[2023-11-13] MEDS: PROTONIX 40 MG PO (08:48)
[2023-11-13] MEDS: FOLVITE 1 MG PO (08:49)
[2023-11-13] MEDS: LINZESS 290 MCG PO (08:49)
[2023-11-13] MEDS: ZADITOR 2 DROP BOTH EYES (08:50)
--- NOTE | 2023-11-13 11:10 | CM ---
Reviewed the chart notes and spoke with the patient via telephone due to Covid + status. The patient's family will provide transport to home today. CM continues to be available to patient/family and is monitoring medical plan for needs at
discharge.
Plan: Discharge to home today with no needs.
[2023-11-13 11:55] VITALS: BP 140/80
[2023-11-13] MEDS: VITAMIN B1 100 MG PO (12:14)
--- NOTE | 2023-11-13 16:28 | W.DCSUMMARY ---
Discharge Summary
Discharge Data
Date of Admission: 11/11/23
Date of Discharge: 11/13/23
Total time spent discharging patient (in min): 45
-
Pending Results: No
Hospital Course
Admission diagnoses�COVID 19
Conditions prior to admission�
Asthma
GERD
Chronic alcoholism
fibromyalgia
Renal mass
Hospital course�patient is a 53-year-old female with history of alcohol use disorder who presented to the ER with 10+ days of cold and flulike symptoms. She tested positive for COVID. Prior to arrival she was binge drinking at least 8-9 beers
daily for 14 days. She reported nausea, vomiting and difficulty tolerating p.o. at time of admission. Initial labs showed hyponatremia, likely secondary to poor oral intake, treated with IV fluids. Now resolved. During course of stay, patient
showed no evidence of alcohol withdrawal symptoms and was recommended thiamine and folate supplementation. Patient was given Zofran for nausea and vomiting. Patient reported ongoing headache that did not respond to Tylenol or Toradol. CT head
showed no acute intracranial abnormalities. Patient was given 1 dose of Imitrex on 11/11 which helped her symptoms. She was recommended [id number] Fioricet and to follow-up with outpatient migraine clinic. Chest x-ray was clear. Patient
refused Paxlovid for COVID-19 diagnosis.
Data reviewed�
11/10�ches x-ray�subtle parenchymal stranding in the anterior right lung base, likely reflecting pneumonitis. No dense consolidation. No pneumothorax or pleural effusion. No congestive heart failure
T head�no acute intracranial abnormalities
Discharge Plan
-
Patient Disposition: Home (Routine Discharge)
Discharge Diagnosis/Procedures: COVID-19
Condition: Fair
Diet: No restrictions and As tolerated
Activity: No restrictions and As tolerated
Driving Restrictions: As prior to admission
Bathing Restrictions: None
Referrals:
Aaliyah Metcalf NP [Family Provider] - in three to four days
Prescriptions:
New
folic acid 1 mg Tablet
1 mg PO DAILY 30 Days Qty: 30 2RF
Continued
albuterol sulfate 2.5 MG/3 ML solution for nebulization
2.5 mg inhalation R TIDPRN PRN (Reason: sob)
metoprolol succinate 50 MG tablet extended release 24 hr
50 mg PO DAILY
albuterol sulfate 108 HFA aerosol inhaler
2 puff inhalation R Q4HPRN PRN (Reason: sob)
ondansetron 4 MG tablet,disintegrating
4 mg PO TIDPRN PRN (Reason: nausea ) Qty: 12 0RF
omeprazole 40 mg Capsule,Delayed Release(Dr/Ec)
40 mg PO DAILY
famotidine 20 mg Tablet
20 mg PO DAILY
ketotifen fumarate 0.025 % (0.035 %) Drops
2 drp BOTH EYES BID
alprazolam [Xanax] 0.5 mg Tablet
0.5 mg PO HS PRN (Reason: anxiety)
ciclesonide 160 mcg/actuation Hfa Aerosol Inhaler
2 puff INHALATION BID
linaclotide 290 mcg Capsule
290 mcg PO DAILY
thiamine HCl (vitamin B1) 100 MG tablet
100 mg PO DAILY 30 Days Qty: 30 2RF
Patient Comments:
today 10/02/20 id patient first day back on b1
Discharge Orders:
Discharge Patient (As Directed); Ordered 11/13/23
Ordered By: Chani Capellan
Discharge Date and Time
Discharge Date/Time: 11/13/23 13:24
Print Language: ZIMBABWEAN
== END 2023-11-13 13:24 | disposition home or self-care (01) | DRG 896 ==
LOC: 2 NORTH 16:08
PROVIDERS: Hospitalist; Physician Assistant Medical; ADMITTING PHYSICIAN Internal Medicine; ATTENDING PHYSICIAN Hospitalist; EMERGENCY PHYSICIAN Emergency Medicine; FAMILY PHYSICIAN Nurse Practitioner Family
DX: F10.20 Alcohol dependence, uncomplicated (principal); U07.1 COVID-19; E87.1 Hypo-osmolality and hyponatremia; Z11.52 Encounter for screening for COVID-19; J45.909 Unspecified asthma, uncomplicated; K21.9 Gastro-esophageal reflux disease without esophagitis; M79.7 Fibromyalgia; N28.89 Other specified disorders of kidney and ureter; R11.2 Nausea with vomiting, unspecified; I10 Essential (primary) hypertension
CPT/HCPCS: 70450; 71046; 80048; 80053; 82077; 82248; 83735; 83930; 83935; 84443; 85025; 85027; 85610; 87811; 94640; 96361; 96374; 96375; 99285

== ENCOUNTER → 2023-12-08 11:36 | Outpatient (REF) | payer OTHER, SELFPAY | LOC: RAD 11:36 | PROVIDERS: ATTENDING PHYSICIAN Nurse Practitioner Family | DX: M79.672 Pain in left foot (principal) | CPT/HCPCS: 73630 ==

== ENCOUNTER 2024-01-01 15:14 | Emergency (ER) | payer OTHER, SELFPAY ==
[2024-01-01 15:15] VITALS: BP 148/98
--- NOTE | 2024-01-01 15:21 | ED.GENMED ---
ED Provider Triage
-
Patient seen by provider in Triage?: Seen in Triage
53yoF here with UTI symptoms x 2 weeks. She has been treating herself at home with cranberry pills and AZO. Now with severe R flank pain. Hx of pyelonephritis as a teenager requiring hospitalization. C/o night sweats but no fevers.
History of Present Illness
General
Chief Complaint: Urinary Symptoms
Past History
Past History
ED Past Medical History: Asthma, GERD, Psychiatric (Chronic alcoholic) and Other (fibromyalgia)
ED Past Surgical History:
Patient has exhibited threatening behavior?: No
PSI?: No
Social History
Tobacco: Non-smoker
Alcohol: Chronic alcoholic
Drug: None
Personal:
Living: with family
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
Family History
Family History: Other (mother- afib); Negative Early CAD or CAD
Course
Orders/Labs/Results
Orders:
Orders
01/01/24 15:19
Complete Blood Count/With Diff Urgent
Comprehensive Metabolic Panel Urgent
Vital Signs
Initial and Last Documented VS:
Initial Vital Signs
Temp Pulse Resp BP Pulse Ox
98.3 F 80 16 148/98 99
01/01/24 15:15 01/01/24 15:15 01/01/24 15:15 01/01/24 15:15 01/01/24 15:15
Last Documented Vital Signs
Temp Pulse Resp BP Pulse Ox
98.3 F 80 16 148/98 99
01/01/24 15:15 01/01/24 15:15 01/01/24 15:15 01/01/24 15:15 01/01/24 15:15
ED Attending Note
-
Portions of this chart may have been created with voice recognition software.� Occasional wrong word or��sound alike� substitutions may have occurred due to the inherent limitations of voice recognition software.
Discharge Plan
Departure
Prescriptions:
No Action
albuterol sulfate 2.5 MG/3 ML solution for nebulization
2.5 mg inhalation R TIDPRN PRN (Reason: sob)
metoprolol succinate 50 MG tablet extended release 24 hr
50 mg PO DAILY
albuterol sulfate 108 HFA aerosol inhaler
2 puff inhalation R Q4HPRN PRN (Reason: sob)
ondansetron 4 MG tablet,disintegrating
4 mg PO TIDPRN PRN (Reason: nausea ) Qty: 12 0RF
omeprazole 40 mg Capsule,Delayed Release(Dr/Ec)
40 mg PO DAILY
famotidine 20 mg Tablet
20 mg PO DAILY
ketotifen fumarate 0.025 % (0.035 %) Drops
2 drp BOTH EYES BID
alprazolam [Xanax] 0.5 mg Tablet
0.5 mg PO HS PRN (Reason: anxiety)
ciclesonide 160 mcg/actuation Hfa Aerosol Inhaler
2 puff INHALATION BID
linaclotide 290 mcg Capsule
290 mcg PO DAILY
folic acid 1 mg Tablet
1 mg PO DAILY 30 Days Qty: 30 2RF
thiamine HCl (vitamin B1) 100 MG tablet
100 mg PO DAILY 30 Days Qty: 30 2RF
Patient Comments:
today 10/02/20 id patient first day back on b1
Discharge Date and Time
Print Language: ROMANIAN
--- NOTE | 2024-01-01 15:28 | ED.PDOC.TRB ---
ED Provider Triage
-
Patient seen by provider in Triage?: Seen in Triage
53yoF here with UTI symptoms x 2 weeks. She has been treating herself at home with cranberry pills and AZO. Now with severe R flank pain. Hx of pyelonephritis as a teenager requiring hospitalization. C/o night sweats but no fevers.
Attestation: A medical screening examination has been initiated by a qualified medical provider. Based on the assessment performed at this time, it has been determined that an emergent medical condition may exist and the patient has been informed
that further medical evaluation and possible additional diagnostic testing may be needed.
HPI:
GENERAL: Alert , appears uncomfortable, clutching flank, non-toxic
EYE: No visual abnormalities.
NECK: Trachea midline
ENT: No visible abnormalities.
LUNGS: No acute respiratory distress
NEUROLOGICAL: Alert and oriented
SKIN: Skin intact. No visible changes.
MUSCULOSKELETAL: Moving extremities normally
PSYCH: Normal and appropriate interaction.
This is a medical evaluation conducted in person to initiate diagnostic evaluation and provide initial therapeutics. Please see further documentation by the treating clinician.
Will CBC, CMP, UA, and CT abdomen. Will order without contrast given reported anaphylactic reaction in the past.
[2024-01-01 15:39] LABS: % Basophils 0.4 % (0-2); % Eosinophils 1.3 % (0-6); % Immature Granulocytes 0.2 % (0-0.5); % Lymphocytes 27.5 % (20.5-51.1); % Monocytes 7.1 % (1.7-9.3); % Neutrophils 63.5 % (42.2-75.2); Absolute Eosinophils 0.1 10^3/uL (0-0.7); Absolute Lymphocytes 2.3 10^3/uL (1.2-3.4); Absolute Monocytes 0.6 10^3/uL (0.1-0.6); Absolute Neutrophils 5.4 10^3/uL (1.4-6.5); Hematocrit 35.4 % (37.0-47.0); Hemoglobin 12.9 g/dL (12.0-16.0); Mean Corp Hgb Conc. 36.4 g/dL (33.0-37.0); Mean Corpuscular Hgb 31.5 pg (27.0-31.0); Mean Corpuscular Volume 86.6 fL (81.0-99.0); Mean Platelet Volume 9.7 fL (7.4-10.4); Nucleated Red Blood Cells % 0 %; Platelet Count 197 10^3/uL (130-400); Red Blood Cell Count 4.09 10^6/uL (4.20-5.40); Red Cell Dist. Width 12.3 % (11.5-14.5); White Blood Cell Count 8.5 10^3/uL (4.8-10.8)
[2024-01-01] MEDS: TORADOL 15 MG IV (16:18)
[2024-01-01 16:27] LABS: ALT (SGPT) 25 U/L (0-35); AST (SGOT) 43 U/L (14-36); Albumin 4.8 g/dl (3.5-5.0); Alkaline Phosphatase 52 U/L (38-126); Blood Urea Nitrogen 6 mg/dl (7-17); Calcium 9.5 mg/dl (8.4-10.2); Carbon Dioxide 21 mmol/L (22-30); Chloride 105 mmol/L (98-107); Glucose 89 mg/dl (70-99); Sodium 141 mmol/L (135-145); Total Bilirubin 0.6 mg/dl (0.2-1.3); Total Protein 7.5 g/dl (6.3-8.2); eGFR > 60.00
[2024-01-01 16:36] LABS: Urine Albumin Trace (Neg - Trace); Urine Bilirubin Negative (Negative); Urine Character Clear (Clear); Urine Color Yellow; Urine Glucose Negative (Negative); Urine Ketone Negative (Negative); Urine Leukocyte 2+ (Negative); Urine Nitrite Negative (Negative); Urine Occult Blood 4+ (Negative); Urine Specific Gravity 1.005 (<1.030); Urine Urobilinogen Negative (Neg - 1+)
[2024-01-01 17:03] LABS: Urine Red Blood Cell 30-40 /HPF (0-2); Urine Squamous Cell 0-2 /LPF (Few); Urine White Cell 80-90 /HPF (0-5)
[2024-01-01 17:04] LABS: Urine Bacteria Moderate (Negative)
--- NOTE | 2024-01-01 17:31 | ED.GENMED ---
History of Present Illness
General
Chief Complaint: Urinary Symptoms
Time Seen by Provider: 01/01/24 15:52
History of Present Illness
History of Present Illness:
53-year-old female presents to the emergency department for evaluation of left flank pain. She states she has had UTI symptoms for the past 2 weeks and has been 'self treating' with cranberry and Azo with no relief. Flank pain developed over the
past 24 hours. Denies fevers or chills. On arrival she is histrionic and writhing around, screaming in pain.
Past History
Past History
ED Past Medical History: Asthma, GERD, Psychiatric (Chronic alcoholic) and Other (fibromyalgia)
ED Past Surgical History:
Patient has exhibited threatening behavior?: No
PSI?: No
Social History
Tobacco: Non-smoker
Alcohol: Chronic alcoholic
Drug: None
Personal:
Living: with family
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
Family History
Family History: Other (mother- afib); Negative Early CAD or CAD
Review of Systems
Review of Systems
Allergies reviewed?: Yes
All Other Systems: ROS reviewed and negative except as documented in HPI and ROS
Phy Exam
Physical Exam
Physical Exam:
GEN: Writhing in pain, holding her left flank
HEENT: Oral mucosa moist, no scleral icterus
Cardiac: Regular rate and rhythm, no murmurs
Lung: No respiratory distress, no tachypnea, lungs clear to auscultation bilaterally
Abdomen: Soft, grossly nontender to the anterior abdomen, positive left CVA tenderness
MSK: No gross deformity or injuries
Skin: Good color, no pallor or jaundice, no rashes
Neuro: AO x3, moves all extremities freely
Psych: Calm, cooperative
Course
Orders/Labs/Results
Orders:
Orders
09/30/24 15:26
CT Abd/pel Without Iv Or Oral Urgent
Comment:
Reason For Exam: R flank pain
Complete Blood Count/With Diff Urgent
Comprehensive Metabolic Panel Urgent
01/01/24 16:06
Urinalysis Reflex To Culture Urgent
Date Specimen was Collected: 01/01/24
Time Specimen was Collected: 16:03
Urine Microscopic Reflex Cult Urgent
Urine Culture Urgent
MELITON Source: U
Specimen Description:
Date Specimen was Collected: 01/01/24
Time Specimen was Collected: 16:03
01/01/24 16:07
Ketorolac [Toradol] 15 mg IV NOW STA
01/01/24 17:30
CefTRIAXone [Rocephin] 1,000 mg IV NOW STA
Diphenhydramine [Benadryl] 25 mg IV NOW STA
01/01/24 18:08
Alprazolam [Xanax] 0.25 mg PO NOW STA
Abnormal Lab Results
01/01/24 01/01/24
15:26 16:06
RBC 4.09 L 10^6/uL
(4.20-5.40)
Hct 35.4 L %
(37.0-47.0)
MCH 31.5 H pg
(27.0-31.0)
Carbon Dioxide 21 L mmol/L
(22-30)
BUN 6 L mg/dl
(7-17)
Creatinine 0.5 L mg/dL
(0.6-1.0)
AST 43 H U/L
(14-36)
Ur Occult Blood Reflex 4+ A
(Negative)
Leukocyte Esterase Rfl 2+ A
(Negative)
Urine RBC 30-40 A /HPF
(0-2)
Urine WBC (Reflex) 80-90 A /HPF
(0-5)
Urine Bacteria (Reflex) Moderate A
(Negative)
01/01/24 15:26
01/01/24 15:26
Vital Signs
Initial and Last Documented VS:
Initial Vital Signs
Temp Pulse Resp BP Pulse Ox
98.3 F 80 16 148/98 99
01/01/24 15:15 01/01/24 15:15 01/01/24 15:15 01/01/24 15:15 01/01/24 15:15
Last Documented Vital Signs
Temp Pulse Resp BP Pulse Ox
98.3 F 64 18 123/81 100
01/01/24 15:15 01/01/24 17:53 01/01/24 17:53 01/01/24 17:53 01/01/24 17:53
MDM/Problems Addressed
MDM/Problems Addressed:
No evidence of obstructive uropathy. Urinalysis consistent with UTI. Prior urine culture indicates pansensitive E. coli. Patient has numerous antibiotic allergies, she indicates to me that she is not certain what her cephalosporin allergy is. We
did give her 1 dose of IV cephalosporin in the emergency department and was tolerated well without any reaction. Will discharge her on cefpodoxime for a 10-day course to treat acute pyelonephritis
*Critical Care Note
Total Time (30-74mins, 75-104mins- exclusive of procedures): Not Applicable
Update Note
Update Note:
I had a lengthy discussion with the patient regardingComplex nature of her treatment given her multiple reported allergies. Unfortunately nitrofurantoin is not a viable option given suspected pyelonephritis, fosfomycin also not likely be beneficial
patient indicates she can tolerate clindamycin but this is not appropriate therapy for UTI. Patient is uncertain whether she has ever actually had cephalosporins and does not know whether she has a true allergy. She is amenable to an IV trial of
ceftriaxone, we will place the patient on the monitor and have antihistamines, epinephrine, and corticosteroids ready should the patient develop any severe reaction symptoms. If this were to occur we will admit for alternative IV antibiotics
ED Attending Note
-
Portions of this chart may have been created with voice recognition software.� Occasional wrong word or��sound alike� substitutions may have occurred due to the inherent limitations of voice recognition software.
Discharge Plan
Departure
Patient Disposition: Home (Routine Discharge)
Date of Disposition: 01/01/24
Time of Disposition: 18:42
Patient with high blood pressure during this ER visit?: No
Discharge Problem:
Acute pyelonephritis
Instructions: Urinary Tract Infection, Adult ED
Prescriptions:
New
cefpodoxime 200 mg tablet
200 mg PO Q12H Qty: 20 0RF
oxycodone-acetaminophen [Percocet] 5-325 mg tablet
1 tab PO Q6HPRN PRN (Reason: pain) Qty: 8 0RF
No Action
albuterol sulfate 2.5 MG/3 ML solution for nebulization
2.5 mg inhalation R TIDPRN PRN (Reason: sob)
metoprolol succinate 50 MG tablet extended release 24 hr
50 mg PO DAILY
albuterol sulfate 108 HFA aerosol inhaler
2 puff inhalation R Q4HPRN PRN (Reason: sob)
ondansetron 4 MG tablet,disintegrating
4 mg PO TIDPRN PRN (Reason: nausea ) Qty: 12 0RF
omeprazole 40 mg Capsule,Delayed Release(Dr/Ec)
40 mg PO DAILY
famotidine 20 mg Tablet
20 mg PO DAILY
ketotifen fumarate 0.025 % (0.035 %) Drops
2 drp BOTH EYES BID
alprazolam [Xanax] 0.5 mg Tablet
0.5 mg PO HS PRN (Reason: anxiety)
ciclesonide 160 mcg/actuation Hfa Aerosol Inhaler
2 puff INHALATION BID
linaclotide 290 mcg Capsule
290 mcg PO DAILY
folic acid 1 mg Tablet
1 mg PO DAILY 30 Days Qty: 30 2RF
thiamine HCl (vitamin B1) 100 MG tablet
100 mg PO DAILY 30 Days Qty: 30 2RF
Patient Comments:
today 10/02/20 id patient first day back on b1
Referrals:
Aaliyah Metcalf NP [Family Provider] -
Interventions
Interventions:
*Risk Screen - Suicide Last Done: 01/01/24 17:55
*General Assessment Last Done: 01/01/24 17:55
*Neglect/Abuse Screening Last Done: 01/01/24 17:55
*ED COVID-19 Vaccine History Last Done: 01/01/24 17:55
ED-Female Genitourinary Assessment Last Done: 01/01/24 17:55
Discharge Date and Time
Print Language: LUX[place]
[2024-01-01] MEDS: ROCEPHIN 1000 MG IV (17:50)
[2024-01-01 17:53] VITALS: BP 123/81
[2024-01-01] MEDS: XANAX 0.25 MG PO (18:17)
[2024-01-01 18:56] VITALS: BP 128/64
== END 2024-01-01 18:50 | disposition home or self-care (01) ==
LOC: EMR 15:14
PROVIDERS: Emergency Medicine; Physician Assistant; EMERGENCY PHYSICIAN Emergency Medicine; FAMILY PHYSICIAN Nurse Practitioner Family
DX: N10 Acute pyelonephritis (principal)
CPT/HCPCS: 99284; 96374; 96375; 74176; 80053; 81003; 81015; 85025; 87086; 87088; 87186

== ENCOUNTER 2024-01-28 09:30 | Emergency (ER) | payer OTHER, SELFPAY ==
[2024-01-28 09:37] VITALS: BP 135/100
[2024-01-28 10:00] LABS: % Basophils 0.9 % (0-2); % Eosinophils 3.1 % (0-6); % Immature Granulocytes 0.2 % (0-0.5); % Monocytes 8.1 % (1.7-9.3); % Neutrophils 67.7 % (42.2-75.2); Absolute Basophils 0.1 10^3/uL (0-0.2); Absolute Eosinophils 0.2 10^3/uL (0-0.7); Absolute Lymphocytes 1.3 10^3/uL (1.2-3.4); Absolute Monocytes 0.5 10^3/uL (0.1-0.6); Absolute Neutrophils 4.3 10^3/uL (1.4-6.5); Hematocrit 40.2 % (37.0-47.0); Hemoglobin 14.7 g/dL (12.0-16.0); Mean Corp Hgb Conc. 36.6 g/dL (33.0-37.0); Mean Corpuscular Hgb 30.9 pg (27.0-31.0); Mean Corpuscular Volume 84.6 fL (81.0-99.0); Mean Platelet Volume 8.9 fL (7.4-10.4); Nucleated Red Blood Cells % 0 %; Platelet Count 270 10^3/uL (130-400); Red Blood Cell Count 4.75 10^6/uL (4.20-5.40); Red Cell Dist. Width 11.9 % (11.5-14.5); White Blood Cell Count 6.4 10^3/uL (4.8-10.8)
[2024-01-28 10:13] LABS: ALT (SGPT) 25 U/L (0-35); AST (SGOT) 39 U/L (14-36); Albumin 5.2 g/dl (3.5-5.0); Alkaline Phosphatase 69 U/L (38-126); Blood Urea Nitrogen 9 mg/dl (7-17); Calcium 10.4 mg/dl (8.4-10.2); Carbon Dioxide 29 mmol/L (22-30); Chloride 94 mmol/L (98-107); Glucose 126 mg/dl (70-99); Lipase 133 U/L (23-300); Sodium 134 mmol/L (135-145); Total Bilirubin 1.1 mg/dl (0.2-1.3); Total Protein 8.1 g/dl (6.3-8.2); eGFR > 60.00
--- NOTE | 2024-01-28 10:48 | ED.GENMED ---
History of Present Illness
General
Chief Complaint: Head Injury
Source: patient
Exam Limitations: none
Time Seen by Provider: 01/28/24 10:47
Nursing documentation reviewed up to this point in time: agreed with except (pt fully describes her fall)
History of Present Illness
History of Present Illness:
53-year-old female with history of alcohol abuse, anxiety, panic disorder, GERD, HTN, falls with history of concussion 11/2022, 'post concussive syndrome,' states she fell 3 days ago at home, striking right side of head and injuring right knee.
She is non weight bearing with ortho boot on right foot from fracture. She was scooting down her front steps 3 days ago, on her butt, at the end she held onto side rails with both hands to hoist herself up and toppled forward landing mostly on left
side and struck right side of head on pavement. No LOC. No headache until next day awakened with 'weird strange sensation of swolleness in my head and nausea' which she has had since. Denies vision change. No vomiting. Has Zofran at home if needed.
Denies neck pain or any bony injury.
Past History
Past History
ED Past Medical History: Asthma, GERD, Psychiatric (Chronic alcoholic) and Other (fibromyalgia)
ED Past Surgical History:
Patient has exhibited threatening behavior?: No
PSI?: No
Social History
Tobacco: Non-smoker
Alcohol: Chronic alcoholic
Drug: None
Personal:
Living: with family
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
Family History
Family History: Other (mother- afib); Negative Early CAD or CAD
Review of Systems
Review of Systems
Allergies reviewed?: Yes
All Other Systems: ROS reviewed and negative except as documented in HPI and ROS
Constitutional: Denies fever
Respiratory: Denies trouble breathing
Cardiac: Denies chest pain or syncope
ABD/GI: Reports nausea; Denies abdominal pain or vomiting
: Reports no symptoms
Musculoskeletal: Reports other (mild left chest wall soreness); Denies neck pain or back pain
Skin: Reports other (scrape right elbow)
Neurological: Reports other (states 'post concussion syndrome' from 2 yrs ago, chronic nausea uses Zofran. )
Phy Exam
Physical Exam
Physical Exam:
GENERAL: No acute distress. A&Ox3.
CONSTITUTIONAL: Afebrile.
EYES: PERRL, conjunctivae normal
Neck: Supple
ENMT: moist mucus membranes, Pharynx nl
RESPIRATORY: Regular respirations, nonlabored, lungs clear.
CARDIOVASCULAR: Regular rate and rhythm, no murmurs, no rubs.
GI: Soft, nontender, normal BS
MUSCULOSKELETAL: Moves with ease. Well perfused.
SKIN: Warm, dry, pink, mild scrape right elbow
PSYCH: Normal mood and affect. Well kept, interactive and appropriate
NEUROLOGIC: Awake, alert and oriented. Speech clear. Cranial nerves II through XII intact. [id number] intact. No focal neurological deficits
Course
Orders/Labs/Results
Orders:
Orders
01/28/24 09:42
Electrocardiogram (*1) Urgent
Reason for Study: Abdominal Pain
EKG- Treatment ONCE
01/28/24 09:44
CT Head W/o Iv Contrast Urgent
Comment:
Reason For Exam: fall
01/28/24 09:51
Complete Blood Count/With Diff Urgent
Comprehensive Metabolic Panel Urgent
Lipase Urgent
01/28/24 11:49
Acetaminophen [Tylenol] 1,000 mg PO NOW STA
Abnormal Lab Results
01/28/24
09:51
Lymphocytes % 20.0 L %
(20.5-51.1)
Sodium 134 L mmol/L
(135-145)
Chloride 94 L mmol/L
(98-107)
Glucose 126 H mg/dl
(70-99)
Calcium 10.4 H mg/dl
(8.4-10.2)
AST 39 H U/L
(14-36)
Albumin 5.2 H g/dl
(3.5-5.0)
01/28/24 09:51
01/28/24 09:51
Vital Signs
Initial and Last Documented VS:
Initial Vital Signs
Temp Pulse Resp BP Pulse Ox
98.2 F 78 16 135/100 98
01/28/24 09:37 01/28/24 09:37 01/28/24 09:37 01/28/24 09:37 01/28/24 09:37
Last Documented Vital Signs
Temp Pulse Resp BP Pulse Ox
98.2 F 64 18 138/90 100
01/28/24 09:37 01/28/24 12:25 01/28/24 12:25 01/28/24 12:25 01/28/24 12:25
MDM/Problems Addressed
Differential Diagnosis Includes:
concussion, post traumatic headache
MDM/Problems Addressed:
53-year-old female with history of alcohol abuse, anxiety, panic disorder, GERD, HTN, falls with history of concussion 11/2022, 'post concussive syndrome,' states she fell 3 days ago at home, striking right side of head and injuring right knee.
She is non weight bearing with ortho boot on right foot from fracture. She was scooting down her front steps 3 days ago, on her butt, at the end she held onto side rails with both hands to hoist herself up and toppled forward landing mostly on left
side and struck right side of head on pavement. No LOC. No headache until next day awakened with 'weird strange sensation of swolleness in my head and nausea' which she has had since. Denies vision change. No vomiting. Has Zofran at home if needed.
Denies neck pain or any bony injury.
Pt has felt bored at home in foot brace so had a few beers yesterday. She has been sober for a while and attends [employer] meetings, is very active in the recovery process and groups
EKG NSR
CBC, CMP with no clinically significant abnormality
head CT normal
Physical exam is unremarkable
Patient is stable for discharge
*EKG
EKG Intrepretation Date: 01/28/24
Interpretation: normal
Heart Rate: 75
Rate: normal
Rhythm: sinus
[place]: normal axis
Interval: normal interval
QRS Pattern: normal QRS
*Critical Care Note
Total Time (30-74mins, 75-104mins- exclusive of procedures): Not Applicable
ED Attending Note
-
Portions of this chart may have been created with voice recognition software.� Occasional wrong word or��sound alike� substitutions may have occurred due to the inherent limitations of voice recognition software.
Discharge Plan
Departure
Patient Disposition: Home (Routine Discharge)
Date of Disposition: 01/28/24
Time of Disposition: 12:11
Patient with high blood pressure during this ER visit?: No
Condition: Good
Discharge Problem:
Fall from slip, trip, or stumble, Headache, post-traumatic
Instructions: Minor Head Injury (DC), Concussion, Adult ED
Prescriptions:
No Action
albuterol sulfate 2.5 MG/3 ML solution for nebulization
2.5 mg inhalation R TIDPRN PRN (Reason: sob)
metoprolol succinate 50 MG tablet extended release 24 hr
50 mg PO DAILY
albuterol sulfate 108 HFA aerosol inhaler
2 puff inhalation R Q4HPRN PRN (Reason: sob)
ondansetron 4 MG tablet,disintegrating
4 mg PO TIDPRN PRN (Reason: nausea ) Qty: 12 0RF
omeprazole 40 mg Capsule,Delayed Release(Dr/Ec)
40 mg PO DAILY
famotidine 20 mg Tablet
20 mg PO DAILY
ketotifen fumarate 0.025 % (0.035 %) Drops
2 drp BOTH EYES BID
alprazolam [Xanax] 0.5 mg Tablet
0.5 mg PO HS PRN (Reason: anxiety)
ciclesonide 160 mcg/actuation Hfa Aerosol Inhaler
2 puff INHALATION BID
linaclotide 290 mcg Capsule
290 mcg PO DAILY
folic acid 1 mg Tablet
1 mg PO DAILY 30 Days Qty: 30 2RF
thiamine HCl (vitamin B1) 100 MG tablet
100 mg PO DAILY 30 Days Qty: 30 2RF
Patient Comments:
today 10/02/20 id patient first day back on b1
cefpodoxime 200 mg tablet
200 mg PO Q12H Qty: 20 0RF
oxycodone-acetaminophen [Percocet] 5-325 mg tablet
1 tab PO Q6HPRN PRN (Reason: pain) Qty: 8 0RF
Referrals:
Aaliyah Metcalf NP [Family Provider] - As needed
Activity Restrictions/Additional Instructions:
As we discussed, there is nothing worrisome in your workup here today. Your CAT scan is normal, your blood work shows nothing worrisome.
Interventions
Interventions:
*Risk Screen - Suicide Last Done: 01/28/24 09:37
*General Assessment Last Done: 01/28/24 09:37
*Neglect/Abuse Screening Last Done: 01/28/24 09:37
ED- Fall Risk Assessment Last Done: 01/28/24 12:28
*ED COVID-19 Vaccine History Last Done: 01/28/24 11:06
*Nursing Disposition Last Done: 01/28/24 12:28
ED- Neurological Assessment Last Done: 01/28/24 11:23
ED-Skin Assessment Last Done: 01/28/24 11:23
Discharge Date and Time
Discharge Date/Time: 01/28/24 12:38
Print Language: OCCITAN
[2024-01-28 12:25] VITALS: BP 138/90
== END 2024-01-28 12:38 | disposition home or self-care (01) ==
LOC: EMR 09:30
PROVIDERS: Emergency Medicine; EMERGENCY PHYSICIAN Student in an Organized Health Care Education/Training Program; FAMILY PHYSICIAN Nurse Practitioner Family
DX: G44.309 Post-traumatic headache, unspecified, not intractable (principal); W01.0XXA Fall on same level from slipping, tripping and stumbling without subsequent striking against object, initial encounter; Y92.009 Unspecified place in unspecified non-institutional (private) residence as the place of occurrence of the external cause; F10.10 Alcohol abuse, uncomplicated; F41.9 Anxiety disorder, unspecified; F41.0 Panic disorder [episodic paroxysmal anxiety]; K21.9 Gastro-esophageal reflux disease without esophagitis; I10 Essential (primary) hypertension; J45.909 Unspecified asthma, uncomplicated; M79.7 Fibromyalgia
CPT/HCPCS: 99284; 70450; 80053; 83690; 85025; 93005

== ENCOUNTER → 2024-05-01 07:51 | Outpatient (REF) | payer OTHER, SELFPAY | LOC: HWWDC 07:51 | PROVIDERS: ATTENDING PHYSICIAN Nurse Practitioner Family | DX: Z12.31 Encounter for screening mammogram for malignant neoplasm of breast (principal) | CPT/HCPCS: 77063; 77067 ==

== ENCOUNTER 2024-05-21 18:00 | Emergency (ER) | payer SELFPAY ==
--- NOTE | 2024-05-21 18:03 | ED.GENMED ---
ED Provider Triage
<Antonio Salcido Jr., PA-C - Last Filed: 05/21/24 18:10>
-
Patient seen by provider in Triage?: Seen in Triage
Attestation: A medical screening examination has been initiated by a qualified medical provider. Based on the assessment performed at this time, it has been determined that an emergent medical condition may exist and the patient has been informed
that further medical evaluation and possible additional diagnostic testing may be needed.
HPI: 53F coming in with concerns of facial injury occuring last night. Was drinking last night. Mainly hit the left side of her face also may have had some neck discomfort as well. Also has been drinking today. Denies any chest pain shortness of
breath numbness weakness. Moving all extremities normally.
GENERAL: Alert , in no apparent distress
EYE: No visual abnormalities.
NECK: Trachea midline
ENT: No visible abnormalities.
LUNGS: No acute respiratory distress
NEUROLOGICAL: Alert and oriented
SKIN: Skin intact. No visible changes.
MUSCULOSKELETAL: Moving extremities normally
PSYCH: Normal and appropriate interaction.
This is a medical evaluation conducted in person to initiate diagnostic evaluation and provide initial therapeutics. Please see further documentation by the treating clinician.
History of Present Illness
<Antonio Salcido Jr., PA-C - Last Filed: 05/21/24 18:10>
General
Chief Complaint: Fall
Time Seen by Provider: 05/21/24 20:38
<Asad Ruelas DO - Last Filed: 05/21/24 21:01>
General
Source: patient
Exam Limitations: none
History of Present Illness
History of Present Illness:
See MDM
Past History
<DIANDRA Huizar Jr. Last Filed: 05/21/24 18:10>
Past History
ED Past Medical History: Asthma, GERD, Psychiatric (Chronic alcoholic) and Other (fibromyalgia)
ED Past Surgical History:
Patient has exhibited threatening behavior?: No
PSI?: No
Social History
Tobacco: Non-smoker
Alcohol: Chronic alcoholic
Drug: None
Personal:
Living: with family
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
Family History
Family History: Other (mother- afib); Negative Early CAD or CAD
Phy Exam
<Asad Ruelas, DO - Last Filed: 05/21/24 21:01>
Physical Exam
Physical Exam:
See MDM
Course
<Antonio Salcido Jr., PA-C - Last Filed: 05/21/24 18:10>
Orders/Labs/Results
Orders:
Orders
05/21/24 18:09
CT Cervical Spine W/o Iv Contr Urgent
Comment:
Reason For Exam: fall hit head intoxicated
CT Facial Bones W/o Iv Contras Urgent
Comment:
Reason For Exam: fall hit face intoxicated
CT Head W/o Iv Contrast Urgent
Comment:
Reason For Exam: fall hit head intoxicated
Vital Signs
Initial and Last Documented VS:
Initial Vital Signs
Pulse Resp BP Pulse Ox
72 16 134/96 100
05/21/24 18:04 05/21/24 18:04 05/21/24 18:04 05/21/24 18:04
Last Documented Vital Signs
Pulse Resp BP Pulse Ox
72 16 134/96 100
05/21/24 18:04 05/21/24 18:04 05/21/24 18:04 05/21/24 18:04
<Asad Ruelas, DO - Last Filed: 05/21/24 21:01>
Orders/Labs/Results
Orders:
Orders
05/21/24 18:09
CT Cervical Spine W/o Iv Contr Urgent
Comment:
Reason For Exam: fall hit head intoxicated
CT Facial Bones W/o Iv Contras Urgent
Comment:
Reason For Exam: fall hit face intoxicated
CT Head W/o Iv Contrast Urgent
Comment:
Reason For Exam: fall hit head intoxicated
Vital Signs
Initial and Last Documented VS:
Initial Vital Signs
Pulse Resp BP Pulse Ox
72 16 134/96 100
05/21/24 18:04 05/21/24 18:04 05/21/24 18:04 05/21/24 18:04
Last Documented Vital Signs
Pulse Resp BP Pulse Ox
72 16 134/96 100
05/21/24 18:04 05/21/24 18:04 05/21/24 18:04 05/21/24 18:04
Procedures
<Asad Ruelas, DO - Last Filed: 05/21/24 21:01>
Laceration Closure
Left Anterior Lateral Eye brow:
Status of Wound: clean
Size of Wound in cm: 2
Description of Wound Edges: sharp
Preparation: cleaned with soap & water
Revision/Debridement: routine- no revision
Wound exploration: explored to base- no FB
Type of Closure: Dermabond-skin glue
<Asad Ruelas, DO - Last Filed: 05/21/24 21:01>
MDM/Problems Addressed
Differential Diagnosis Includes:
HPI and MDM Narrative:
53-year-old female presenting for evaluation of left facial trauma. Patient does acknowledge that she was drinking alcohol last night. She had a slip and fall and hit her head. She believes her tetanus is up-to-date. Prior to my evaluation, CT
head, cervical spine and facial bones was performed. CT showed no acute fracture or bleed. Patient was found to have a laceration to her lateral left eyebrow and into her left lower lip. The lip laceration is more of an abrasion and does not
cross the vermilion border. This will heal on its own. We discussed sutures versus Dermabond in regards to her left lateral eyebrow laceration. In this area, there is skin and some subcutaneous tissue but no muscle layer noted. Dermabond placed
without difficulty and patient tolerated procedure well
Physical exam
General: Well appearing and non-toxic
HEENT: protecting airway. Mild ecchymosis around left orbit without bony tenderness. 2 cm laceration to left lateral eyebrow. Subcentimeter laceration to left lower lip that does not involve vermilion border
Neck: appears supple
CV: No evidence of cyanosis
Resp: No accessory muscle use
Abd: Non-distended
Extremities: No deformities
Neuro: alert
Psych: Normal affect
Skin: Intact
Problems Addressed including Acute and Chronic Conditions affecting care:
1. Head injury with facial laceration
Acuity: acute
Prognosis: stable
Details: CT head negative for acute pathology. Dermabond placed on the laceration
Differential Diagnosis (but not limited to): Facial fracture, concussion, laceration
Testing considered: EKG
Drug therapy (if applicable): OTC meds, please see d/c instruction regarding Rx drugs
Amount and/or Complexity of Data Reviewed
Clinical info obtained from: Patient
External data reviewed: N/A
Labs I independently reviewed (but not limited to): N/A
Radiology: The CT scan was personally and independently reviewed. In addition, official CT report reviewed.
Pulse Ox: not hypoxic
EKG independently reviewed: N/A
Sizing Sponger: N/A
Critical Care: N/A
Risk of Complication:
Social Determinants of health: Good social support
Discussed with other providers: N/A
Escalation of Care includes Admit/Obs: After being observed in the Emergency Department, pt stable for discharge.
Occasional wrong word or 'sound a like' substitutions may have occurred due to the inherent limitations of voice recognition software. Read the chart carefully and recognize, using context, where substitutions have occurred.
<Asad Ruelas DO - Last Filed: 05/21/24 21:01>
*Critical Care Note
Total Time (30-74mins, 75-104mins- exclusive of procedures): Not Applicable
ED Attending Note
<Antonio Salcido Jr. PAMayteC - Last Filed: 05/21/24 18:10>
-
Portions of this chart may have been created with voice recognition software.� Occasional wrong word or��sound alike� substitutions may have occurred due to the inherent limitations of voice recognition software.
Discharge Plan
Departure
Patient Disposition: Home (Routine Discharge)
Date of Disposition: 05/21/24
Time of Disposition: 21:00
Patient with high blood pressure during this ER visit?: No
Discharge Problem:
Head injury, Facial laceration
Instructions: Laceration Repair With Glue (DC)
Prescriptions:
No Action
albuterol sulfate 2.5 MG/3 ML solution for nebulization
2.5 mg inhalation R TIDPRN PRN (Reason: sob)
metoprolol succinate 50 MG tablet extended release 24 hr
50 mg PO DAILY
albuterol sulfate 108 HFA aerosol inhaler
2 puff inhalation R Q4HPRN PRN (Reason: sob)
ondansetron 4 MG tablet,disintegrating
4 mg PO TIDPRN PRN (Reason: nausea ) Qty: 12 0RF
omeprazole 40 mg Capsule,Delayed Release(Dr/Ec)
40 mg PO DAILY
famotidine 20 mg Tablet
20 mg PO DAILY
ketotifen fumarate 0.025 % (0.035 %) Drops
2 drp BOTH EYES BID
alprazolam [Xanax] 0.5 mg Tablet
0.5 mg PO HS PRN (Reason: anxiety)
ciclesonide 160 mcg/actuation Hfa Aerosol Inhaler
2 puff INHALATION BID
linaclotide 290 mcg Capsule
290 mcg PO DAILY
folic acid 1 mg Tablet
1 mg PO DAILY 30 Days Qty: 30 2RF
thiamine HCl (vitamin B1) 100 MG tablet
100 mg PO DAILY 30 Days Qty: 30 2RF
Patient Comments:
today 10/02/20 id patient first day back on b1
cefpodoxime 200 mg tablet
200 mg PO Q12H Qty: 20 0RF
oxycodone-acetaminophen [Percocet] 5-325 mg tablet
1 tab PO Q6HPRN PRN (Reason: pain) Qty: 8 0RF
Activity Restrictions/Additional Instructions:
Your wound was fixed with derma-fonseca. This is a special glue that holds a wound closed similar to stitches. This type of wound closure will eventually fall off by itself and does not need to be removed. You may wash the area very gently, but do not
scrub or pick at the glue. Watch for signs of infection: fever over 100.5', increasing pain, red streaks around wound, swelling, drainage of pus, or bad smell. If any of these happen, return to ED promptly. All wounds may scar, however you may
reduce the appearance of scarring by avoiding sun exposure to the scar and applying skin moisturizer with spf protection to the scar once the wound is healed.
Please return for any worsening symptoms.
You may return at any time if you have further concerns.
Please follow up with your doctor at the first available appointment, preferably this week.
Thank you for choosing [facility].
Interventions
Interventions:
*Risk Screen - Suicide Last Done: 05/21/24 18:04
*General Assessment Last Done: 05/21/24 18:04
*Neglect/Abuse Screening Last Done: 05/21/24 18:04
*ED COVID-19 Vaccine History Last Done: 05/21/24 19:58
ED-Musculoskeletal Assessment Last Done: 05/21/24 19:58
ED- Neurological Assessment Last Done: 05/21/24 19:58
ED-Skin Assessment Last Done: 05/21/24 19:58
Discharge Date and Time
Print Language: LAO
[2024-05-21 18:04] VITALS: BP 134/96
[2024-05-21 19:57] VITALS: BMI 22.8
== END 2024-05-21 21:21 | disposition home or self-care (01) ==
LOC: EMR 18:00
PROVIDERS: EMERGENCY PHYSICIAN Student in an Organized Health Care Education/Training Program; FAMILY PHYSICIAN Nurse Practitioner Family
DX: S01.81XA Laceration without foreign body of other part of head, initial encounter (principal); S09.90XA Unspecified injury of head, initial encounter; S00.511A Abrasion of lip, initial encounter; W01.0XXA Fall on same level from slipping, tripping and stumbling without subsequent striking against object, initial encounter; J45.909 Unspecified asthma, uncomplicated; K21.9 Gastro-esophageal reflux disease without esophagitis; M79.7 Fibromyalgia; F10.20 Alcohol dependence, uncomplicated
CPT/HCPCS: 99284; 12011; 70450; 70486; 72125

== ENCOUNTER 2024-06-23 15:18 | Emergency (ER) | payer OTHER, SELFPAY ==
[2024-06-23] VITALS (7 sets, daily range): BP systolic 110–130; BP diastolic 63–77
[2024-06-23 15:56] LABS: % Eosinophils 0.8 % (0-6); % Immature Granulocytes 0.2 % (0-0.5); % Lymphocytes 28.6 % (20.5-51.1); % Monocytes 6.2 % (1.7-9.3); % Neutrophils 63.2 % (42.2-75.2); Absolute Basophils 0.1 10^3/uL (0-0.2); Absolute Lymphocytes 1.5 10^3/uL (1.2-3.4); Absolute Monocytes 0.3 10^3/uL (0.1-0.6); Absolute Neutrophils 3.3 10^3/uL (1.4-6.5); Hematocrit 37.8 % (37.0-47.0); Hemoglobin 13.5 g/dL (12.0-16.0); Mean Corp Hgb Conc. 35.7 g/dL (33.0-37.0); Mean Corpuscular Hgb 32.9 pg (27.0-31.0); Mean Corpuscular Volume 92.2 fL (81.0-99.0); Mean Platelet Volume 8.9 fL (7.4-10.4); Nucleated Red Blood Cells % 0 %; Platelet Count 274 10^3/uL (130-400); Red Cell Dist. Width 13.4 % (11.5-14.5); White Blood Cell Count 5.2 10^3/uL (4.8-10.8)
[2024-06-23 16:08] LABS: ALT (SGPT) 62 U/L (0-35); AST (SGOT) 48 U/L (14-36); Albumin 5.3 g/dl (3.5-5.0); Alkaline Phosphatase 67 U/L (38-126); Blood Urea Nitrogen 7 mg/dl (7-17); Calcium 10.7 mg/dl (8.4-10.2); Carbon Dioxide 27 mmol/L (22-30); Chloride 100 mmol/L (98-107); Glucose 156 mg/dl (70-99); Lipase 190 U/L (23-300); Potassium 4.5 mmol/L (3.5-5.1); Sodium 136 mmol/L (135-145); Total Bilirubin 0.8 mg/dl (0.2-1.3); Total Protein 8.3 g/dl (6.3-8.2); eGFR > 60.00
--- NOTE | 2024-06-23 17:04 | ED.GENMED ---
History of Present Illness
General
Chief Complaint: Withdrawal Symptoms
Source: patient
Exam Limitations: none
Time Seen by Provider: 06/23/24 16:38
Nursing documentation reviewed up to this point in time: agreed with
History of Present Illness
History of Present Illness:
Patient is a 53-year-old female presenting to the ER for evaluation. Patient has a history of alcohol abuse abuse and reports she stopped drinking June 18; 5 days ago she reports she does have as needed Xanax as needed and has been taking it. She
presents to the ER because she hit her head and was seen here May 21 and had a laceration to her left orbital region. She reports since then she has had headache, blurred vision and feels foggy.
She is not on blood thinners. in addition she reports that her blood pressure has been elevated. Today she reports it was 170/103 and she normally has very low blood pressure though she is maintained on metoprolol 50 mg every day. Her blood
pressure is managed by Dr. Kaur of cardiology. She reports she is compliant with this medication
Past History
Past History
ED Past Medical History: Asthma, GERD, Psychiatric (Chronic alcoholic) and Other (fibromyalgia)
ED Past Surgical History:
Patient has exhibited threatening behavior?: No
PSI?: No
Social History
Tobacco: Non-smoker
Alcohol: Chronic alcoholic
Drug: None
Personal:
Living: with family
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
Family History
Family History: Other (mother- afib); Negative Early CAD or CAD
Review of Systems
Review of Systems
Allergies reviewed?: Yes
All Other Systems: ROS reviewed and negative except as documented in HPI and ROS
Constitutional: Reports no symptoms; Denies fever, fatigue or chills
EENT: Reports no symptoms
Respiratory: Reports no symptoms
Cardiac: Reports no symptoms
ABD/GI: Reports no symptoms; Denies nausea or vomiting
: Reports no symptoms
Musculoskeletal: Reports no symptoms
Skin: Reports no symptoms
Neurological: Reports headache and other (feels foggy blurred vision headaches )
Psychiatric: Reports no symptoms
Phy Exam
General Physical Exam
General Presentation: no apparent distress
General age: appears stated age
General Skin: warm and dry
General Habitus: normal
General Mental: alert
General Hydration: appears well hydrated
Eye Exam
Eye Exam: PERRL and EOMI
Eye Exam General: PERRL: bilateral and EOM intact: bilateral
Pupil Exam: Bilateral: round and reactive
Cardiovascular Exam
Cardiovascular Exam: regular rate/rhythm, no murmur and normal peripheral pulses
Pulmonary Exam
Pulmonary Exam: lungs clear and no respiratory distress
Neurological Exam
Neurological Exam: alert, oriented x3, no motor deficits and no sensory deficits
Shoshana Coma Scale
Eye Opening: Spontaneous
Verbal Response: Oriented
Motor Response: Obeys Commands
GCS Total Score: 15
Cerebellar
Cerebellar Function: normal finger to nose
Musculoskeletal Exam
Musculoskeletal Exam: full ROM
Skin Exam
Skin Exam: normal color and warm/dry
Psychiatric Exam
Psychiatric Exam: normal mood/affect
Course
Orders/Labs/Results
Orders:
Orders
06/23/24 15:31
EKG [Electrocardiogram (*1)] Urgent
Reason for Study: Hypertension, Benign
06/23/24 15:32
EKG- Treatment ONCE
06/23/24 15:34
CT Head W/o Iv Contrast Urgent
Comment:
Reason For Exam: headache, blurry vision
06/23/24 15:47
Complete Blood Count/With Diff Urgent
Comprehensive Metabolic Panel Urgent
Lipase Urgent
06/23/24 19:41
0.9% Sodium Chloride 1000 ml [Nss] 1,000 ml IV BOLUS
Ketorolac [Toradol] 15 mg IV NOW STA
Abnormal Lab Results
06/23/24
15:47
RBC 4.10 L 10^6/uL
(4.20-5.40)
MCH 32.9 H pg
(27.0-31.0)
Glucose 156 H mg/dl
(70-99)
Calcium 10.7 H mg/dl
(8.4-10.2)
AST 48 H U/L
(14-36)
ALT 62 H U/L
(0-35)
Total Protein 8.3 H g/dl
(6.3-8.2)
Albumin 5.3 H g/dl
(3.5-5.0)
06/23/24 15:47
06/23/24 15:47
Vital Signs
Initial and Last Documented VS:
Initial Vital Signs
Temp Pulse Resp BP Pulse Ox
98.1 F 84 18 130/74 100
06/23/24 15:29 06/23/24 15:29 06/23/24 15:29 06/23/24 15:29 06/23/24 15:29
Last Documented Vital Signs
Temp Pulse Resp BP Pulse Ox
98.1 F 61 19 122/73 100
06/23/24 15:29 06/23/24 21:30 06/23/24 21:30 06/23/24 21:00 06/23/24 16:32
MDM/Problems Addressed
MDM/Problems Addressed:
53-year-old female history of alcohol use presents to the ER for evaluation. Patient has detoxed on her own and presents to the ER for evaluation of persistent symptoms after head injury. She was seen here in this ER May 21 for head
injury while intoxicated. At that time she had imaging which was negative but she has felt headaches 'feels off' blurry vision, since then. Because she has drank since then and does suffer from alcohol use CAT scan of her head was done this ER
visit which was negative.
She has not had alcohol in over 5 days and does not have any signs of withdrawal. She is nontachycardic she is awake she is alert no nausea vomiting or diaphoresis no sweating.
Blood work was checked and normal CBC, normal sodium normal renal function glucose mildly elevated LFTs very minimally elevated with a normal bilirubin.
Patient was given Toradol fluids for headache however discussed follow-up as an outpatient. She has been in therapy and follow-up for previous concussion and I do recommend that she follows again for possible concussion related to May follow-up
*Critical Care Note
Total Time (30-74mins, 75-104mins- exclusive of procedures): Not Applicable
ED Attending Note
-
Portions of this chart may have been created with voice recognition software.� Occasional wrong word or��sound alike� substitutions may have occurred due to the inherent limitations of voice recognition software.
Discharge Plan
Departure
Patient Disposition: Home (Routine Discharge)
Date of Disposition: 06/23/24
Time of Disposition: 21:35
Patient with high blood pressure during this ER visit?: No
Condition: Fair
Covid-19: Not Applicable
Discharge Problem:
post concussion syndromme
Instructions: BLOOD PRESSURE
Prescriptions:
No Action
albuterol sulfate 2.5 MG/3 ML solution for nebulization
2.5 mg inhalation R TIDPRN PRN (Reason: sob)
metoprolol succinate 50 MG tablet extended release 24 hr
50 mg PO DAILY
albuterol sulfate 108 HFA aerosol inhaler
2 puff inhalation R Q4HPRN PRN (Reason: sob)
ondansetron 4 MG tablet,disintegrating
4 mg PO TIDPRN PRN (Reason: nausea ) Qty: 12 0RF
omeprazole 40 mg Capsule,Delayed Release(Dr/Ec)
40 mg PO DAILY
famotidine 20 mg Tablet
20 mg PO DAILY
ketotifen fumarate 0.025 % (0.035 %) Drops
2 drp BOTH EYES BID
alprazolam [Xanax] 0.5 mg Tablet
0.5 mg PO HS PRN (Reason: anxiety)
ciclesonide 160 mcg/actuation Hfa Aerosol Inhaler
2 puff INHALATION BID
linaclotide 290 mcg Capsule
290 mcg PO DAILY
folic acid 1 mg Tablet
1 mg PO DAILY 30 Days Qty: 30 2RF
thiamine HCl (vitamin B1) 100 MG tablet
100 mg PO DAILY 30 Days Qty: 30 2RF
Patient Comments:
today 10/02/20 id patient first day back on b1
cefpodoxime 200 mg tablet
200 mg PO Q12H Qty: 20 0RF
oxycodone-acetaminophen [Percocet] 5-325 mg tablet
1 tab PO Q6HPRN PRN (Reason: pain) Qty: 8 0RF
Referrals:
Aaliyah Metcalf NP [Family Provider] -
Activity Restrictions/Additional Instructions:
As discussed it is likely that you may have postconcussive syndrome.
Please follow-up with your family doctor as well as your neurologist.
As discussed you may continue to take ibuprofen.
Return if any worsening of symptoms.
Interventions
Interventions:
*Risk Screen - Suicide Last Done: 06/23/24 15:29
*General Assessment Last Done: 06/23/24 15:29
*Neglect/Abuse Screening Last Done: 06/23/24 15:29
*ED- Fall Risk Assessment Last Done: 06/23/24 15:59
*ED COVID-19 Vaccine History Last Done: 06/23/24 15:29
*Nursing Disposition Last Done: 06/23/24 21:48
ED- Neurological Assessment Last Done: 06/23/24 15:59
ED-Psychological Assessment Last Done: 06/23/24 15:59
Discharge Date and Time
Discharge Date/Time: 06/23/24 21:50
Print Language: WALLISIAN
[2024-06-23] MEDS: TORADOL 15 MG IV (19:58)
[2024-06-23] MEDS: NSS 1000 IV (19:58)
== END 2024-06-23 21:50 | disposition home or self-care (01) ==
LOC: EMR 15:18
PROVIDERS: EMERGENCY PHYSICIAN Emergency Medicine; FAMILY PHYSICIAN Nurse Practitioner Family
DX: H53.8 Other visual disturbances (principal); R51.9 Headache, unspecified; F07.81 Postconcussional syndrome
CPT/HCPCS: 99285; 96374; 96361; 70450; 80053; 83690; 85025; 93005

== ENCOUNTER → 2024-07-24 14:43 | Outpatient (REF) | payer OTHER, SELFPAY | LOC: RAD 14:43 | PROVIDERS: ATTENDING PHYSICIAN Family Medicine; FAMILY PHYSICIAN Nurse Practitioner Family | DX: R07.89 Other chest pain (principal) | CPT/HCPCS: 71046 ==

== ENCOUNTER 2024-08-29 03:09 | Emergency (ER) | payer OTHER, SELFPAY ==
[2024-08-29 03:24] VITALS: BP 133/88
[2024-08-29 03:43] VITALS: BP 138/89
[2024-08-29 03:59] VITALS: BMI 21.8
[2024-08-29 04:00] VITALS: BP 138/83
--- NOTE | 2024-08-29 04:17 | ED.GENMED ---
History of Present Illness
General
Chief Complaint: Head Injury
Source: patient
Exam Limitations: none
Time Seen by Provider: 08/29/24 04:09
Nursing documentation reviewed up to this point in time: agreed with
History of Present Illness
History of Present Illness:
This is a 54 year-old female with a past medical history of asthma, alcohol, used disorder, Gerd, IBS, who presents emergency department today with concerns of headache and nausea following head injury. Patient reports that around five days ago,
patient was on a drinking binge and recalls falling into furniture and hitting her head on the side of her dresser and subsequently falling down and injuring her back. Patient is not sure if she lost consciousness at that time. Patient reports that
her boyfriend helped her onto the couch and she reports that since then, she�s felt persistent headaches on her left side as well as nausea. She also notes intermittent blurry vision. She also feels like she�s off-balance at times, but does report
that she�s had multiple concussions in the past and is currently following with a physical therapist who specializes in concussions. Patient also no it�s pain in her lower back. She knows any pain in her hips. She knows any chest pain or shortness
of breath. Patient is concerned she may be hyponatremic. Patient states at the last time she had a drink of alcohol is three days ago. She denies any withdrawal symptoms. Patient reports that she is dealing with a lot of stress in her life recently,
causing her to go into the binge a few days ago.
Past History
Past History
ED Past Medical History: Asthma, GERD, Psychiatric (Chronic alcoholic) and Other (fibromyalgia)
ED Past Surgical History:
Patient has exhibited threatening behavior?: No
PSI?: No
Social History
Tobacco: Non-smoker
Alcohol: Chronic alcoholic
Drug: None
Personal:
Living: with family
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
Family History
Family History: Other (mother- afib); Negative Early CAD or CAD
Review of Systems
Review of Systems
All Other Systems: ROS reviewed and negative except as documented in HPI and ROS
Phy Exam
Physical Exam
Physical Exam:
General: Patient is well appearing and in no acute distress; non-toxic
Skin: Warm and dry, no rashes or lesions
Head: Small area of ecchymosis noted to right zygomatic process
Eyes: Sclera non-icteric. EOMs intact. PERRLA.
Neck: Paraspinal tenderness noted no midline spinal tenderness
Cardiac: Regular rate and rhythm, no murmurs
Peripheral Vascular: No lower extremity swelling or edema
Pulm: Normal respiratory effort
Abdomen: No tenderness to palpation no signs of trauma
MSK: No midline spinal tenderness, paraspinal brusing noted
Neuro: CN II-XII intact, no focal neurologic deficits. Normal gait.
Psychiatric: Appropriate mood and affect.
Course
Orders/Labs/Results
Orders:
Orders
08/29/[address] Facial Bones W/o Iv Contras Urgent
Reason For Exam: fall 5 days ago with cheek bruising
08/29/24 04:36
CT Cervical Spine W/o Iv Contr Urgent
Comment:
Reason For Exam: neck pain following fall
CR Thoracic Spine 3 Views Urgent
Comment:
Reason For Exam: midline back pain and brusing following fall
08/29/24 04:37
CT Head W/o Iv Contrast Urgent
Comment:
Reason For Exam: headache, blunt head trauma
08/29/24 04:38
0.9% Sodium Chloride 500 ml [Nss] 500 ml IV BOLUS
Ondansetron HCl [Zofran] 4 mg PO NOW STA
08/29/24 04:44
Alcohol Urgent
Basic Metabolic Panel Urgent
Complete Blood Count/With Diff Urgent
08/29/24 05:12
Ondansetron Injectable [Zofran] 4 mg .ROUTE .STK-MED ONE
08/29/24 05:13
Ondansetron Injectable [Zofran] 4 mg IV NOW STA
08/29/24 05:56
Ketorolac [Toradol] 30 mg IV NOW STA
08/29/24 06:01
Metoclopramide [Reglan] 10 mg IV NOW STA
Abnormal Lab Results
08/29/24
04:44
RBC 3.66 L 10^6/uL
(4.20-5.40)
Hgb 11.7 L g/dL
(12.0-16.0)
Hct 32.8 L %
(37.0-47.0)
MCH 32.0 H pg
(27.0-31.0)
Absolute Monos (auto) 0.7 H 10^3/uL
(0.1-0.6)
Monocytes % 12.3 H %
(1.7-9.3)
Creatinine 0.5 L mg/dL
(0.6-1.0)
Glucose 103 H mg/dl
(70-99)
08/29/24 04:44
08/29/24 04:44
Vital Signs
Initial and Last Documented VS:
Initial Vital Signs
Temp Pulse Resp BP Pulse Ox
98.8 F 67 18 133/88 100
08/29/24 03:24 08/29/24 03:24 08/29/24 03:24 08/29/24 03:24 08/29/24 03:24
Last Documented Vital Signs
Temp Pulse Resp BP Pulse Ox
98.8 F 58 18 145/93 99
08/29/24 03:24 08/29/24 06:27 08/29/24 06:27 08/29/24 06:27 08/29/24 06:27
MDM/Problems Addressed
Differential Diagnosis Includes:
ddx include concussion, subdural hematoma, epidural hematoma, tension headache, migraine headache
MDM/Problems Addressed:
This is a 54 year-old female with a past medical history of asthma, alcohol, used disorder, Gerd, IBS, who presents emergency department today with concerns of headache and nausea following head injury. She reports that this happened after an
episode of binge drinking. The head injury occurred 5 days ago. She has a hx of multiple concussions in the past. On physical exam she has some bruising to the right zygomatic process and back. Her x-ray of the thoracic spine showed no evidence of
fracture and her CT scan of the facial bones, cervical spine, and head were negative. Suspect concussion. Patient does follow with a concussion specialist and physical therapist and she does have an appointment coming up. Patient stable for
discharge.
Patient was mildly anemic today compared to baseline however she has no signs of active bleeding no signs of lower GI bleeding recommended repeating blood work with primary patient expressed understanding.
Chronic conditions affecting care:
alcohol abuse
*Pulse Oximetry
Patient hypoxic: no
*Critical Care Note
Total Time (30-74mins, 75-104mins- exclusive of procedures): Not Applicable
Data Reviewed
Review of Other/Old Records Reveals: Records (reviewed prior ER physician documentation from 06/23/24 patient seen for similar symptoms)
Source: patient
ED Attending Note
-
Portions of this chart may have been created with voice recognition software.� Occasional wrong word or��sound alike� substitutions may have occurred due to the inherent limitations of voice recognition software.
Discharge Plan
Departure
Patient Disposition: Home (Routine Discharge)
Date of Disposition: 08/29/24
Time of Disposition: 06:10
Patient with high blood pressure during this ER visit?: Yes
Condition: Good
Discharge Problem:
Concussion, Acute head trauma
Instructions: Concussion, Adult (DC), Head Injury in Adults (DC), BLOOD PRESSURE
Prescriptions:
New
ondansetron HCl 4 mg tablet
4 mg PO Q4H PRN (Reason: nausea and vomiting) Qty: 10 0RF
No Action
albuterol sulfate 2.5 MG/3 ML solution for nebulization
2.5 mg inhalation R TIDPRN PRN (Reason: sob)
metoprolol succinate 50 MG tablet extended release 24 hr
50 mg PO DAILY
albuterol sulfate 108 HFA aerosol inhaler
2 puff inhalation R Q4HPRN PRN (Reason: sob)
ondansetron 4 MG tablet,disintegrating
4 mg PO TIDPRN PRN (Reason: nausea ) Qty: 12 0RF
omeprazole 40 mg Capsule,Delayed Release(Dr/Ec)
40 mg PO DAILY
famotidine 20 mg Tablet
20 mg PO DAILY
ketotifen fumarate 0.025 % (0.035 %) Drops
2 drp BOTH EYES BID
alprazolam [Xanax] 0.5 mg Tablet
0.5 mg PO HS PRN (Reason: anxiety)
ciclesonide 160 mcg/actuation Hfa Aerosol Inhaler
2 puff INHALATION BID
linaclotide 290 mcg Capsule
290 mcg PO DAILY
folic acid 1 mg Tablet
1 mg PO DAILY 30 Days Qty: 30 2RF
thiamine HCl (vitamin B1) 100 MG tablet
100 mg PO DAILY 30 Days Qty: 30 2RF
Patient Comments:
today 10/02/20 id patient first day back on b1
cefpodoxime 200 mg tablet
200 mg PO Q12H Qty: 20 0RF
oxycodone-acetaminophen [Percocet] 5-325 mg tablet
1 tab PO Q6HPRN PRN (Reason: pain) Qty: 8 0RF
Referrals:
UNKNOWN - PT DOES,NOT KNOW [Family Provider]
Activity Restrictions/Additional Instructions:
Please follow-up with your vestibular concussion therapist. Follow-up with your primary care provider and have CBC repeated in 2 weeks.
PLEASE RETURN EMERGENCY DEPARTMENT SHOULD YOU DEVELOP CHEST PAIN, SHORTNESS BREATH, DIZZINESS, LIGHTHEADEDNESS, INTRACTABLE NAUSEA OR VOMITING, INABILITY TO AMBULATE, OR ANY OTHER SIGNS OR SYMPTOMS WORRISOME TO
Interventions
Interventions:
*Risk Screen - Suicide Last Done: 08/29/24 03:24
*General Assessment Last Done: 08/29/24 06:30
*Neglect/Abuse Screening Last Done: 08/29/24 06:30
*ED- Fall Risk Assessment Last Done: 08/29/24 06:30
*ED COVID-19 Vaccine History Last Done: 08/29/24 06:30
*Nursing Disposition Last Done: 08/29/24 06:30
ED- Neurological Assessment Last Done: 08/29/24 03:59
ED-Skin Assessment Last Done: 08/29/24 03:59
Discharge Date and Time
Discharge Date/Time: 08/29/24 06:44
Print Language: STATELESS
[2024-08-29 05:06] LABS: % Basophils 0.7 % (0-2); % Immature Granulocytes 0.2 % (0-0.5); % Lymphocytes 34.3 % (20.5-51.1); % Monocytes 12.3 % (1.7-9.3); % Neutrophils 50.5 % (42.2-75.2); Absolute Eosinophils 0.1 10^3/uL (0-0.7); Absolute Lymphocytes 1.9 10^3/uL (1.2-3.4); Absolute Monocytes 0.7 10^3/uL (0.1-0.6); Absolute Neutrophils 2.7 10^3/uL (1.4-6.5); Hematocrit 32.8 % (37.0-47.0); Hemoglobin 11.7 g/dL (12.0-16.0); Mean Corp Hgb Conc. 35.7 g/dL (33.0-37.0); Mean Corpuscular Volume 89.6 fL (81.0-99.0); Mean Platelet Volume 9.8 fL (7.4-10.4); Nucleated Red Blood Cells % 0 %; Platelet Count 147 10^3/uL (130-400); Red Blood Cell Count 3.66 10^6/uL (4.20-5.40); Red Cell Dist. Width 12.1 % (11.5-14.5); White Blood Cell Count 5.4 10^3/uL (4.8-10.8)
[2024-08-29] MEDS: ZOFRAN 4 MG IV (05:13)
[2024-08-29] MEDS: NSS 500 IV (05:14)
[2024-08-29 05:30] LABS: Alcohol None Detected; Blood Urea Nitrogen 13 mg/dl (7-17); Calcium 9.5 mg/dl (8.4-10.2); Carbon Dioxide 27 mmol/L (22-30); Chloride 105 mmol/L (98-107); Estimated Creatinine Clearance 88 ml/min; Glucose 103 mg/dl (70-99); Sodium 137 mmol/L (135-145); eGFR > 60.00
[2024-08-29] MEDS: TORADOL 30 MG IV (06:20)
[2024-08-29] MEDS: REGLAN 10 MG IV (06:21)
[2024-08-29 06:27] VITALS: BP 145/93
== END 2024-08-29 06:44 | disposition home or self-care (01) ==
LOC: EMR 03:09
PROVIDERS: Physician Assistant; EMERGENCY PHYSICIAN Emergency Medicine
DX: S06.0XAA Concussion with loss of consciousness status unknown, initial encounter (principal); S00.83XA Contusion of other part of head, initial encounter; S30.0XXA Contusion of lower back and pelvis, initial encounter; R11.0 Nausea; G44.309 Post-traumatic headache, unspecified, not intractable; H53.8 Other visual disturbances; W01.190A Fall on same level from slipping, tripping and stumbling with subsequent striking against furniture, initial encounter; J45.909 Unspecified asthma, uncomplicated; K21.9 Gastro-esophageal reflux disease without esophagitis; M79.7 Fibromyalgia; F10.20 Alcohol dependence, uncomplicated; I10 Essential (primary) hypertension; K58.9 Irritable bowel syndrome, unspecified; I73.00 Raynaud's syndrome without gangrene; F41.0 Panic disorder [episodic paroxysmal anxiety]; Z63.0 Problems in relationship with spouse or partner; Z87.820 Personal history of traumatic brain injury; Z86.16 Personal history of COVID-19
CPT/HCPCS: 99285; 96374; 96375 ×2; 96361; 70450; 70486; 72072; 72125; 80048; 82077; 85025

== ENCOUNTER 2024-10-17 17:36 | Emergency (ER) | payer OTHER, SELFPAY ==
[2024-10-17 17:38] VITALS: BP 173/106
--- NOTE | 2024-10-17 22:40 | ED.GENMED ---
History of Present Illness
General
Chief Complaint: Fall
Source: patient and spouse
Exam Limitations: none
Time Seen by Provider: 10/17/24 21:02
Nursing documentation reviewed up to this point in time: agreed with
History of Present Illness
History of Present Illness:
Patient admits to drinking today. States deck is being redone. SHe fell approx 4 ft off deck. Hit right side of head on pavement. SPouse reports LOC. Brought to ED for eval.
Past History
Past History
ED Past Medical History: Asthma, GERD, Psychiatric (Chronic alcoholic) and Other (fibromyalgia)
ED Past Surgical History:
Patient has exhibited threatening behavior?: No
PSI?: No
Social History
Tobacco: Non-smoker
Alcohol: Chronic alcoholic
Drug: None
Personal:
Living: with family
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
Family History
Family History: Other (mother- afib); Negative Early CAD or CAD
Review of Systems
Review of Systems
Allergies reviewed?: Yes
All Other Systems: ROS reviewed and negative except as documented in HPI and ROS
Constitutional: Reports no symptoms
EENT: Reports no symptoms
Respiratory: Reports no symptoms
Cardiac: Reports no symptoms
ABD/GI: Reports no symptoms
: Reports no symptoms
Musculoskeletal: Reports no symptoms
Skin: Reports other (hematoma right parietal scalp)
Neurological: Reports headache
Psychiatric: Reports no symptoms
Phy Exam
General Physical Exam
General Presentation: well appearing and no apparent distress
General age: appears stated age
General Skin: warm and dry
General Habitus: normal
General Mental: alert
Eye Exam
Eye Exam: PERRL, EOMI, conjunctiva normal and globe normal
Neurological Exam
Neurological Exam: alert, oriented x3, CN II-XII intact, no motor deficits, no sensory deficits, speech normal and normal gait
Musculoskeletal Exam
Musculoskeletal Exam: full ROM and neuro vasc intact
Skin Exam
Skin Exam: normal color, warm/dry and other (hematoma to right parietal scalp)
Psychiatric Exam
Psychiatric Exam: normal mood/affect
Course
Orders/Labs/Results
Orders:
Orders
10/17/24 17:44
CT Head W/o Iv Contrast Urgent
Comment:
Reason For Exam: fall, head injury +LOC
Cervical Spine wo Contrast CT [CT Cervical Spine W/o Iv Contr] Urgent
Comment:
Reason For Exam: fall, head injury +LOC
Vital Signs
Initial and Last Documented VS:
Initial Vital Signs
Pulse Resp BP Pulse Ox
70 20 173/106 97
10/17/24 17:38 10/17/24 17:38 10/17/24 17:38 10/17/24 17:38
Last Documented Vital Signs
Pulse Resp BP Pulse Ox
70 20 173/106 97
10/17/24 17:38 10/17/24 17:38 10/17/24 17:38 10/17/24 17:38
*Radiology
Radiology exam reviewed: radiology read reviewed
*Pulse Oximetry
SaO2: 97
Oxygen Mode of Delivery: Room air
Patient hypoxic: no
*Critical Care Note
Total Time (30-74mins, 75-104mins- exclusive of procedures): Not Applicable
Update Note
Update Note:
Patient to ED after falling approx 4ft off deck. Large hematoma to right parietal scalp. + LOC. On exam tonight she is alert and oriendted, cooperative. Neuro exam without concerning findings. Full nonpainful ROM to head/neck back, upper and
lower extremites. CT head and neck results reviewed with pt and spouse. She will be discharged home, follow up with PCP. Given instructions on s/s to return to ED and she is agreeable to plan.
ED Attending Note
-
Portions of this chart may have been created with voice recognition software.� Occasional wrong word or��sound alike� substitutions may have occurred due to the inherent limitations of voice recognition software.
Discharge Plan
Departure
Patient Disposition: Home (Routine Discharge)
Date of Disposition: 10/17/24
Time of Disposition: 21:35
Patient with high blood pressure during this ER visit?: No
Condition: Good
Discharge Problem:
Head injury
Instructions: Head Injury in Adults (DC), Contusion (DC), Preventing falls in adults
Prescriptions:
No Action
albuterol sulfate 2.5 MG/3 ML solution for nebulization
2.5 mg inhalation R TIDPRN PRN (Reason: sob)
metoprolol succinate 50 MG tablet extended release 24 hr
50 mg PO DAILY
albuterol sulfate 108 HFA aerosol inhaler
2 puff inhalation R Q4HPRN PRN (Reason: sob)
ondansetron 4 MG tablet,disintegrating
4 mg PO TIDPRN PRN (Reason: nausea ) Qty: 12 0RF
omeprazole 40 mg Capsule,Delayed Release(Dr/Ec)
40 mg PO DAILY
famotidine 20 mg Tablet
20 mg PO DAILY
ketotifen fumarate 0.025 % (0.035 %) Drops
2 drp BOTH EYES BID
alprazolam [Xanax] 0.5 mg Tablet
0.5 mg PO HS PRN (Reason: anxiety)
ciclesonide 160 mcg/actuation Hfa Aerosol Inhaler
2 puff INHALATION BID
linaclotide 290 mcg Capsule
290 mcg PO DAILY
folic acid 1 mg Tablet
1 mg PO DAILY 30 Days Qty: 30 2RF
thiamine HCl (vitamin B1) 100 MG tablet
100 mg PO DAILY 30 Days Qty: 30 2RF
Patient Comments:
today 10/02/20 id patient first day back on b1
cefpodoxime 200 mg tablet
200 mg PO Q12H Qty: 20 0RF
oxycodone-acetaminophen [Percocet] 5-325 mg tablet
1 tab PO Q6HPRN PRN (Reason: pain) Qty: 8 0RF
ondansetron HCl 4 mg tablet
4 mg PO Q4H PRN (Reason: nausea and vomiting) Qty: 10 0RF
Referrals:
Aaliyah Metcalf NP [Family Provider, Family Practice] - Tomorrow
Interventions
Interventions:
*Risk Screen - Suicide Last Done: 10/17/24 17:44
*General Assessment Last Done: 10/17/24 17:44
*Nursing Disposition Last Done: 10/17/24 21:51
Discharge Date and Time
Discharge Date/Time: 10/17/24 21:45
Print Language: CZECH
== END 2024-10-17 21:45 | disposition home or self-care (01) ==
LOC: EMR 17:36
PROVIDERS: EMERGENCY PHYSICIAN Emergency Medicine; FAMILY PHYSICIAN Nurse Practitioner Family
DX: S09.90XA Unspecified injury of head, initial encounter (principal); W19.XXXA Unspecified fall, initial encounter; J45.909 Unspecified asthma, uncomplicated; K21.9 Gastro-esophageal reflux disease without esophagitis; F10.20 Alcohol dependence, uncomplicated; M79.7 Fibromyalgia
CPT/HCPCS: 99284; 70450; 72125

== ENCOUNTER → 2024-10-21 17:13 | Outpatient (REF) | payer OTHER, SELFPAY | LOC: RAD 17:13 | PROVIDERS: ATTENDING PHYSICIAN Nurse Practitioner Family | DX: S06.0X1A Concussion with loss of consciousness of 30 minutes or less, initial encounter (principal); S00.03XA Contusion of scalp, initial encounter; R11.0 Nausea | CPT/HCPCS: 70450 ==

== ENCOUNTER 2024-12-30 13:48 | Emergency (ER) | payer OTHER, SELFPAY ==
[2024-12-30 13:51] VITALS: BP 149/101
[2024-12-30 14:21] LABS: Hematocrit 35.4 % (37.0-47.0); Hemoglobin 12.7 g/dL (12.0-16.0); Mean Corp Hgb Conc. 35.9 g/dL (33.0-37.0); Mean Corpuscular Volume 88.3 fL (81.0-99.0); Nucleated Red Blood Cells % 0 %; Platelet Count 162 10^3/uL (130-400); Red Cell Dist. Width 12.3 % (11.5-14.5)
[2024-12-30 14:41] LABS: ALT (SGPT) 104 U/L (0-35); AST (SGOT) 117 U/L (14-36); Albumin 5.0 g/dl (3.5-5.0); Alkaline Phosphatase 75 U/L (38-126); Blood Urea Nitrogen 5 mg/dl (7-17); Calcium 9.2 mg/dl (8.4-10.2); Carbon Dioxide 20 mmol/L (22-30); Chloride 98 mmol/L (98-107); Glucose 149 mg/dl (70-99); Potassium 4.1 mmol/L (3.5-5.1); Sodium 130 mmol/L (135-145); Total Protein 7.8 g/dl (6.3-8.2); eGFR > 60.00
--- NOTE | 2024-12-30 15:48 | ED.MUSCINJ ---
HPI-Injury
General
Chief Complaint: Fall
Source: patient
Exam Limitations: none
Time Seen by Provider: 12/30/24 14:29
History of Present Illness-Injury
Initial Injury comments:
54-year-old female presents after fall she sustained last evening. She was intoxicated and fell hitting her head. She also complains of left shoulder pain. She has been on a month-long binge. She is trying to self-medicate she is under a lot of
stress. No chest pain or shortness of breath. No other complaints at this time
Past History
Past History
ED Past Medical History: Asthma, GERD, Psychiatric (Chronic alcoholic) and Other (fibromyalgia)
ED Past Surgical History:
Patient has exhibited threatening behavior?: No
PSI?: No
Social History
Tobacco: Non-smoker
Alcohol: Chronic alcoholic
Drug: None
Personal:
Living: with family
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
Family History
Family History: Other (mother- afib); Negative Early CAD or CAD
Phy Exam
Physical Exam
Physical Exam:
General: Well-appearing female no acute respiratory distress H EENT
Normal cephalic laceration left eyebrow that is scabbed over pupils equal round reactive to light TMs normal there is periorbital swelling of the left eye
Neurologic exam: Alert conversing appropriately
Musculoskeletal exam: The spine is nontender. Patient is tender over the left lateral upper arm
Injury Course
Orders/Labs/Results
Orders:
Orders
12/30/24 13:58
Shoulder, Left, Trauma CR [CR Shoulder, Trauma - Left] Urgent
Comment:
Reason For Exam: pain after fall
12/30/24 14:04
Alcohol Urgent
Complete Blood Count/With Diff Urgent
Comprehensive Metabolic Panel Urgent
12/30/24 15:42
CT Head W/o Iv Contrast Urgent
Comment:
Reason For Exam: fall, head injury
12/30/24 15:50
Sling Left-Treatment ONCE
Abnormal Lab Results
12/30/24
14:04
WBC 10.9 H 10^3/uL
(4.8-10.8)
RBC 4.01 L 10^6/uL
(4.20-5.40)
Hct 35.4 L %
(37.0-47.0)
MCH 31.7 H pg
(27.0-31.0)
Absolute Neuts (auto) 8.2 H 10^3/uL
(1.4-6.5)
Absolute Monos (auto) 0.9 H 10^3/uL
(0.1-0.6)
Lymphocytes % 15.5 L %
(20.5-51.1)
Sodium 130 L mmol/L
(135-145)
Carbon Dioxide 20 L mmol/L
(22-30)
BUN 5 L mg/dl
(7-17)
Creatinine 0.4 L mg/dL
(0.6-1.0)
Glucose 149 H mg/dl
(70-99)
AST 117 H U/L
(14-36)
ALT 104 H U/L
(0-35)
12/30/24 14:04
12/30/24 14:04
MDM/Problems Addressed
Differential Diagnosis Includes:
Alcohol intoxication resulting in a fall yesterday with left shoulder pain and head strike. She is currently intoxicated alcohol level is 364. Given head strike, CT of the head was ordered. X-ray left shoulder demonstrates fracture of the greater
tuberosity. Single base applied. Offered the assistance of [facility]
*Pulse Oximetry
SaO2: 97
Oxygen Mode of Delivery: Room air
Patient hypoxic: no
*Critical Care Note
Total Time (30-74mins, 75-104mins- exclusive of procedures): Not Applicable
Update Note
Update Note:
X-ray demonstrates a nondisplaced fracture of the greater tuberosity. Sling applied. CT of the head was performed which is negative for fracture or intracranial hemorrhage. The wound was cleansed with saline. Stable for discharge home. The
patient did speak with the [facility]. She will follow-up as an outpatient
ED Attending Note
-
Portions of this chart may have been created with voice recognition software.� Occasional wrong word or��sound alike� substitutions may have occurred due to the inherent limitations of voice recognition software.
Discharge Plan
Departure
Patient Disposition: Home (Routine Discharge)
Date of Disposition: 12/30/24
Time of Disposition: 19:08
Patient with high blood pressure during this ER visit?: No
Discharge Problem:
Fracture of proximal end of humerus
Instructions: Alcohol use disorder - ED (DC)
Prescriptions:
New
lorazepam [Ativan] 0.5 mg tablet
0.5 mg PO BID PRN (Reason: alcohol withdrawal) Qty: 6 0RF
No Action
albuterol sulfate 2.5 MG/3 ML solution for nebulization
2.5 mg inhalation R TIDPRN PRN (Reason: sob)
metoprolol succinate 50 MG tablet extended release 24 hr
50 mg PO DAILY
albuterol sulfate 108 HFA aerosol inhaler
2 puff inhalation R Q4HPRN PRN (Reason: sob)
ondansetron 4 MG tablet,disintegrating
4 mg PO TIDPRN PRN (Reason: nausea ) Qty: 12 0RF
omeprazole 40 mg Capsule,Delayed Release(Dr/Ec)
40 mg PO DAILY
famotidine 20 mg Tablet
20 mg PO DAILY
ketotifen fumarate 0.025 % (0.035 %) Drops
2 drp BOTH EYES BID
alprazolam [Xanax] 0.5 mg Tablet
0.5 mg PO HS PRN (Reason: anxiety)
ciclesonide 160 mcg/actuation Hfa Aerosol Inhaler
2 puff INHALATION BID
linaclotide 290 mcg Capsule
290 mcg PO DAILY
folic acid 1 mg Tablet
1 mg PO DAILY 30 Days Qty: 30 2RF
thiamine HCl (vitamin B1) 100 MG tablet
100 mg PO DAILY 30 Days Qty: 30 2RF
Patient Comments:
today 10/02/20 id patient first day back on b1
cefpodoxime 200 mg tablet
200 mg PO Q12H Qty: 20 0RF
oxycodone-acetaminophen [Percocet] 5-325 mg tablet
1 tab PO Q6HPRN PRN (Reason: pain) Qty: 8 0RF
ondansetron HCl 4 mg tablet
4 mg PO Q4H PRN (Reason: nausea and vomiting) Qty: 10 0RF
Referrals:
Aaliyah Metcalf NP [Family Provider, Family Practice]
Activity Restrictions/Additional Instructions:
Use sling for comfort. Follow-up with orthopedics for further evaluation. Continue to seek treatment as an outpatient for your alcohol use.
Interventions
Interventions:
*Risk Screen - Suicide Last Done: 12/30/24 13:51
*General Assessment Last Done: 12/30/24 13:51
*Neglect/Abuse Screening Last Done: 12/30/24 16:00
*ED- Fall Risk Assessment Last Done: 12/30/24 16:00
*ED COVID-19 Vaccine History Last Done: 12/30/24 16:00
*ED Influenza Vaccine History Last Done: 12/30/24 16:00
ED-Musculoskeletal Assessment Last Done: 12/30/24 15:44
ED- Neurological Assessment Last Done: 12/30/24 15:33
ED-Skin Assessment Last Done: 12/30/24 15:44
Discharge Date and Time
Print Language: AZERI
[2024-12-30 16:00] VITALS: BP 102/59
[2024-12-30 18:11] VITALS: BP 123/77
== END 2024-12-30 20:03 | disposition home or self-care (01) ==
LOC: EMR 13:48
PROVIDERS: Emergency Medicine; EMERGENCY PHYSICIAN Emergency Medicine; FAMILY PHYSICIAN Nurse Practitioner Family
DX: S42.202A Unspecified fracture of upper end of left humerus, initial encounter for closed fracture (principal); W19.XXXA Unspecified fall, initial encounter; J45.909 Unspecified asthma, uncomplicated; K21.9 Gastro-esophageal reflux disease without esophagitis; M79.7 Fibromyalgia; Z98.891 History of uterine scar from previous surgery
CPT/HCPCS: 99284; 70450; 73030; 80053; 82077; 85025